=== PATIENT | male | born 1980 | race Caucasian/White ===

== ENCOUNTER 2017-08-07 12:15 | Inpatient (IN) | payer OTHER ==
[2017-08-07] MEDS ORDERED: MIDAZOLAM 2 MG/2 ML VIAL IVP ONE ×6 (12:20→13:40)
[2017-08-07] MEDS ORDERED: MIDAZOLAM 10 MG/2 ML VIAL ONE (12:24)
[2017-08-07] MEDS ORDERED: NS 1,000 ML IV ONE ×3 (12:30→14:14)
--- NOTE | 2017-08-07 12:31 | CPEKG ---
Heart Rate: 132 RR Interval: 455 P-R Interval: 124 QRSD Interval: 88 QT Interval: 316 QTC Interval: 468 P Jefferson: 83 QRS Jefferson: 63 T Wave Jefferson: 42 EKG Severity - ABNORMAL ECG - EKG Impression: SINUS TACHYCARDIA EKG Impression: VENTRICULAR PREMATURE COMPLEX EKG Impression: ABERRANT COMPLEX, POSSIBLY SUPRAVENTRICULAR EKG Impression: MISTY, CONSIDER BIATRIAL ABNORMALITIES Electronically Signed By: Piter Flores 07-Aug-2017 12:56:21
--- NOTE | 2017-08-07 12:40 | EDPHY ---
H & P HPI/ROS: CHIEF COMPLAINT: Hanging HISTORY OF PRESENT ILLNESS: The patient is a 36-year-old man who came in as a full trauma from the long-term for hanging. He was found hanging and pulseless. CPR was initiated. After 10 minutes of CPR pulses returned. AED in place but no shock advised. He was intubated by EMS. He had agonal breathing on the tube and was being bagged on arrival. No return of mental status. He was taken into the long-term last night for DUI. This morning he was evaluated and denied any significant medical history. REVIEW OF SYSTEMS: Unable to obtain secondary to condition Nursing assessment reviewed Vital signs reviewed Patient is unresponsive c-collar in place, backboard cleared by trauma protocol. HEAD: shows no evidence of trauma no raccoon eyes, no Oneil sign. NECK: trachea is midline, EYES: Pupils to a nonreactive, no movement, no subconjunctival hemorrhage ENT: Normal external inspection, airway in place, no sinus abnormalities CARDIOVASCULAR: heart sounds normal, not tachycardic or bradycardic, Chest is non-tender no rib tenderness no palpable fracture, no crepitus, no subcutaneous emphysema RESPIRATORY: Equal breath sounds bilaterally ABDOMEN: Abdomen is nontender in all 4 quadrants no guarding no rebound, no distention, no hernias, no masses or bruits. GENITAL/RECTAL: Normal external inspection, no blood at urethral meatus, Stable pelvis NEUROLOGIC/PSYCH: Unresponsive Jessica Coma score: 3 EYES none 1, SPEECH none 1, MOTORnone-1 SKIN: Intact, warm, dry, no ecchymosis, no lacerations, nondiaphoretic. BACK: No obvious injuries or step-offs EXTREMITIES: Atraumatic, pelvis stable, no pulse deficit, normal color and temperature Source: Police, EMS Exam Limitations: Clinical condition - Family History Significant Family History: Other (Unable to assess) Constitutional: Initial Vital Signs Temperature (C) 36.2 C 08/07/17 12:15 Heart Rate 123 H 08/07/17 12:15 Respiratory Rate 32 H 08/07/17 12:15 Blood Pressure 140/90 H 08/07/17 12:15 O2 Sat (%) 97 08/07/17 12:15 O2 Delivery Mode Ventilator O2 (L/minute) 15 Allergies/Adverse Reactions: No Known Allergies Allergy (Unverified 08/07/17 12:57) Home Medications: Medication Instructions Recorded NK [No Known Home Meds] 08/07/17 Medical Decision Making - Diagnostics EKG Interpretation: An EKG obtained and was read and documented in trace view. Please see trace view for full reading and report. Sinus tachycardia, Imaging: Discussed imaging studies w/ call or contact centre operator Radiologist ED Course/Re-evaluation: Chest x-ray was taken and the tube was high. This was advanced under direct guidance with glide scope. The balloon had been above the vocal cords. Was advanced to 26 and the balloon is now below the vocal cords with improvement on chest x-ray although still slightly high. Patient's heart rate is 130. His blood pressure is stable. He was taken to CT scan. Dr. Suazo is here on patient arrival. Patient had agonal respiration and slightly bucking the vent. He was given 8 mg Versed. Patient did well on CT scan. Still no spontaneous movement. We will start on cooling protocol. Dr. De Dios will place catheter and he will began the protocol in ICU. We have been trying to locate family's phone numbers. We have 2 different names and phone numbers for mom. They have not yet been notified. Differential Diagnosis: Partial list of the Differential diagnosis considered include but were not limited to; respiratory arrest, fracture, vascular injury and although unlikely based on the history and physical exam, I also considered head injury, infection, acute coronary disease. Critical Care Time: Critical care time spent by me, Dr. Flores exclusive with this patient was 45 minutes, exclusive of the PA time exclusive of procedures. The organ system that was at risk was cardiovascular, musculoskeletal and I gave assessment, consultation, admission to prevent worsening of the patient's condition - Data Points Laboratory Results: Laboratory Results 08/07/17 12:27 08/07/17 12:27 Medications Given: Chlorhexidine Gluconate (Peridex) 15 ml PO Q12@08,20 [place] Stop: 02/03/18 19:59 Last Admin: 08/08/17 08:47 Dose: 15 ml Famotidine/Sodium Chloride (Pepcid 20 Mg (Premix)) 50 mls @ 200 mls/hr IV Q12HRS [place] Stop: 02/03/18 20:59 Last Admin: 08/08/17 08:34 Dose: 50 mls Fentanyl/Sodium Chloride (Fentanyl 10 Mcg/Ml (Premix)) 100 mls @ 0 mls/hr IV CONT [place]; Per Protocol PRN Reason: Protocol Stop: 08/17/17 14:29 Last Admin: 08/08/17 05:44 Dose: 100 mls Propofol (Diprivan 10 Mg/Ml (Premix)) 100 mls @ 0 mls/hr IV CONT [place]; Per Protocol PRN Reason: Protocol Stop: 02/03/18 14:29 Last Admin: 08/08/17 08:46 Dose: 100 mls Sodium Chloride (Ns) 1,000 mls @ 75 mls/hr IV CONT [place] Stop: 02/03/18 14:13 Last Admin: 08/08/17 03:30 Dose: 1,000 mls Vecuronium [place] 50 mg/ (Dextrose) 50 mls @ 0 mls/hr IV CONT [place]; Per Protocol PRN Reason: Protocol Stop: 02/03/18 14:13 Last Admin: 08/08/17 06:46 Dose: 50 mls Nicardipine/Sodium Chloride (Cardene 0.1 Mg/Ml (Premix)) 200 mls @ 0 mls/hr IV CONT [place]; Per Protocol PRN Reason: Protocol Stop: 02/03/18 14:13 Last Admin: 08/07/17 16:11 Dose: 200 mls Potassium Chloride (Potassium Cl 10 Meq (Premix)) 50 mls @ 100 mls/hr IV Q30M [place] Stop: 08/08/17 09:59 Last Admin: 08/08/17 08:46 Dose: 50 mls Polyvinyl Alcohol/Povidone (Refresh P.M. Ointment) 1 loyd EACHEYE Q6HRS [place] Stop: 02/03/18 18:14 Last Admin: 08/08/17 07:17 Dose: 1 loyd Discontinued Medications Benzocaine (Hurricaine [place]) 1 each MM ONCALL ONE Stop: 08/07/17 14:38 Last Admin: 08/07/17 15:10 Dose: Not Given Fentanyl (Sublimaze) 50 mcg IVP ONCE ONE Stop: 08/07/17 14:15 Last Admin: 08/07/17 15:07 Dose: Not Given Sodium Chloride (Ns) 1,000 mls @ 0 mls/hr IV ONCE ONE PRN Reason: Wide Open Stop: 08/07/17 14:15 Last Admin: 08/07/17 15:10 Dose: Not Given Sodium Chloride (Ns) 1,000 mls @ 0 mls/hr IV ONCE ONE PRN Reason: Wide Open Stop: 08/07/17 13:16 Last Admin: 08/07/17 13:15 Dose: 1,000 mls Sodium Chloride (Ns) 1,000 mls @ 0 mls/hr IV ONCE ONE PRN Reason: Wide Open Stop: 08/07/17 12:31 Last Admin: 08/07/17 12:30 Dose: 1,000 mls Magnesium Sulfate/Dextrose (Magnesium Sulf 1 Gm (Premix)) 100 mls @ 100 mls/hr IV ONCE ONE Stop: 08/08/17 02:14 Last Admin: 08/08/17 01:45 Dose: 100 mls Lidocaine (Lidocaine 2% Jelly) 2 loyd TP ONCALL ONE Stop: 08/07/17 14:38 Last Admin: 08/07/17 15:10 Dose: 1 loyd Lidocaine HCl (Lidocaine Hcl 1%) 1 - 300 mg MISC ONCALL ONE Stop: 08/07/17 14:38 Last Admin: 08/07/17 15:10 Dose: 300 mg Midazolam HCl (Versed) 4 mg IVP EDNOW ONE Stop: 08/07/17 12:21 Last Admin: 08/07/17 12:20 Dose: 4 mg Midazolam HCl (Versed) 4 mg IVP EDNOW ONE Stop: 08/07/17 12:24 Last Admin: 08/07/17 12:23 Dose: 4 mg Midazolam HCl (Versed) 5 mg IVP EDNOW ONE Stop: 08/07/17 12:56 Last Admin: 08/07/17 12:55 Dose: 5 mg Midazolam HCl (Versed) 2.5 mg IVP EDNOW ONE Stop: 08/07/17 13:31 Last Admin: 08/07/17 13:30 Dose: 2.5 mg Midazolam HCl (Versed) 2.5 mg IVP EDNOW ONE Stop: 08/07/17 13:41 Last Admin: 08/07/17 13:40 Dose: 2.5 mg Midazolam HCl (Versed) 2 mg IVP EDNOW ONE Stop: 08/07/17 13:46 Last Admin: 08/07/17 15:35 Dose: Not Given Midazolam HCl (Versed) 0.5 mg IVP EDNOW ONE Stop: 08/07/17 13:41 Last Admin: 08/07/17 13:40 Dose: 0.5 mg Miscellaneous Information (Message To [facility]) 1 ea MISC ONCE ONE Stop: 08/07/17 14:15 Last Admin: 08/07/17 15:11 Dose: Not Given Departure - Departure Disposition: [facility] Acute Clinical Impression: Hypoxic brain injury, Cardiac arrest Hanging Qualifiers: Encounter type: initial encounter Qualified Code(s): T71.164A - Asphyxiation due to hanging, undetermined, initial encounter Condition: Critical
[2017-08-07 13:00] LABS: PLATELET COUNT 355 10^3/uL (150-400)
[2017-08-07 13:12] LABS: INR 1.06 (0.83-1.16); PROTIME(PATIENT) 13.7 SEC (12.0-15.0)
--- NOTE | 2017-08-07 13:13 | ASMTCMCOM ---
CM Note CM Note Notes: Patient brought to the ER per EMS s/p [facility]. Pulseless upon finding, rhythm returned after resuccitation efforts. No return of LOC. Unable to obtain history, NOK, etc. Per officer González with the [facility], gem are looking into finding NOK contact information. HACA to be initiated and patient admit to ICU. Date Signed: 08/07/2017 01:13 PM Electronically Signed By:Keke Villeda RN
--- NOTE | 2017-08-07 13:13 | ASMTCMCOM ---
CM Note CM Note Notes: Patient brought to the ER per EMS s/p found "hanging" at the correction. Pulseless upon finding, rhythm returned after resuccitation efforts. No return of LOC. Unable to obtain history, NOK, etc. Per officer González with the [facility], gem are looking into finding NOK contact information. HACA to be initiated and patient admit to ICU. Date Signed: 08/07/2017 01:13 PM Electronically Signed By:Keke Villeda RN
--- NOTE | 2017-08-07 13:13 | ASMTCMCOM ---
CM Note CM Note Notes: Patient brought to the ER per EMS s[facility]p [facility]. Pulseless upon finding, rhythm returned after resuccitation efforts. No return of LOC. Unable to obtain history, NOK, etc. Per officer González with the [facility] Office, gem are looking into finding NOK contact information. HACA to be initiated and patient admit to ICU. Date Signed: 08/07/2017 01:13 PM Electronically Signed By:Keke Villeda RN
[2017-08-07] MEDS ORDERED: MIDAZOLAM 2 MG/2 ML VIAL ONE ×3 (13:40→17:48)
[2017-08-07] MEDS: MIDAZOLAM 2 MG/2 ML VIAL IVP ONE ×2 (13:45→15:35)
[2017-08-07] MEDS ORDERED: PROPOFOL/EMULSION 1,000 MG/100 ML BOTTLE IV ONE (14:02)
[2017-08-07] MEDS ORDERED: fentanYL/NACL/100 ML BAG IV ONE (14:05)
[2017-08-07] MEDS: fentaNYL/NACL 100 ML IV SCH ×2 (14:09→20:15)
[2017-08-07] MEDS: PROPOFOL/EMULSION 100 ML IV SCH ×3 (14:09→22:43)
[2017-08-07] MEDS ORDERED: MIDAZOLAM 2 MG/2 ML VIAL IVP PRN (14:14)
[2017-08-07] MEDS ORDERED: fentaNYL 100 MCG/2 ML INJ IVP ONE (14:14)
[2017-08-07] MEDS ORDERED: NARCOTIC DRIP BAG-TOTAL ALL TYPES IV PRN (14:14)
[2017-08-07] MEDS ORDERED: PROTOCOL POTASSIUM 1 DOSE MISC PRN ×2 (14:14→14:18)
[2017-08-07] MEDS ORDERED: PROPOFOL/EMULSION 100 ML IV SCH (14:14)
[2017-08-07] MEDS ORDERED: niCARdipine/NACL 200 ML IV PRN (14:14)
[2017-08-07] MEDS ORDERED: NOREPINEPHRINE 4MG/NS 500 ML IV PRN (14:14)
[2017-08-07] MEDS ORDERED: NS 250 ML IV PRN (14:14)
[2017-08-07] MEDS ORDERED: fentaNYL/NACL 100 ML IV SCH (14:14)
[2017-08-07] MEDS ORDERED: MIDAZOLAM HCL 50 MG in D5W 50 ML IV PRN (14:14)
[2017-08-07] MEDS ORDERED: USE *INSINTENS FOR HYPOGLYCEMIA ORDERS MISC ONE (14:14)
[2017-08-07] MEDS ORDERED: PROTOCOL MAGNESIUM 1 DOSE IV PRN (14:18)
[2017-08-07] MEDS ORDERED: PROTOCOL CALCIUM 1 DOSE IV PRN (14:23)
[2017-08-07] MEDS ORDERED: PROTOCOL K PHOSPHATE 1 DOSE IV PRN (14:23)
--- NOTE | 2017-08-07 14:33 | GHP ---
[f rep st] HISTORY AND PHYSICAL Corrected report CHIEF COMPLAINT: Hanging from assisted. PRESENT ILLNESS: A 36-year-old adult male brought in by ambulance, intubated, apparently having received 10 minutes of CPR for pulseless electrical activity at the assisted and hanging. He was shocked once or twice, and eventually had a palpable pulse and a stable rhythm. When received in the emergency department, the patient is on a backboard, C-collar in place, intubated. PHYSICAL EXAM: HEENT: At that time, pupils 3 mm and not particularly reactive. No blood in the ear canals. CHEST: Breath sounds were equal bilaterally. HEART: Normal S1, S2. EXTREMITIES: Upper extremities show no sign of trauma. NECK: There were some erythematous stripes around the neck, consistent with a broad-based hanging attempt. No cuts in the skin around the neck. ABDOMEN: Soft, benign. RESPIRATORY: The patient had an unusual paradoxical breathing with pronounced retraction of the upper abdomen or xiphoid area with inspiration. MUSCULOSKELETAL: Pelvis is stable to compression. Lower extremities atraumatic. Eventually, the patient was rolled on his side and no obvious abnormalities of the back were seen. NEUROLOGICAL: The patient had corneal reflexes, breathing spontaneously. Babinski could not be elicited, either way. No response to verbal commands. No spontaneous eye opening. [place] coma scale was 3. LABORATORY: Not reviewed until after CT scans, include hemoglobin of 18 with a hematocrit of 51, white blood count 16,000. Coags are normal. Chemistries normal other than potassium of 5.0. IMAGING: Chest x-ray initially did not show the position of the ET tube and inspection showed the cuff to be inflated just above the cords. This was repositioned below the cords and a followup film taken. CT scan of the head was normal. CT scan of the neck showed no fractures, no carotid or vertebral injuries. EMERGENCY ROOM COURSE: I placed a cooling catheter in the right groin with the usual sterile technique, positioned the tip of the catheter right at the diaphragm, confirmed with fluoroscopy. The patient received numerous doses of Versed because he began having spontaneous arm and leg movements, not purposeful. After the cooling catheter was placed, he was transported to the intensive care unit for further management. /[id number]/MODL Wayne worktype, 08/07/17, sugey RED
--- NOTE | 2017-08-07 14:33 | GHP ---
[f rep st] HISTORY AND PHYSICAL Corrected report CHIEF COMPLAINT: [facility]. PRESENT ILLNESS: A 36-year-old adult male brought in by ambulance, intubated, apparently having received 10 minutes of CPR for pulseless electrical activity at the prison and hanging. He was shocked once or twice, and eventually had a palpable pulse and a stable rhythm. When received in the emergency department, the patient is on a backboard, C-collar in place, intubated. PHYSICAL EXAM: HEENT: At that time, pupils 3 mm and not particularly reactive. No blood in the ear canals. CHEST: Breath sounds were equal bilaterally. HEART: Normal S1, S2. EXTREMITIES: Upper extremities show no sign of trauma. NECK: There were some erythematous stripes around the neck, consistent with a broad-based hanging attempt. No cuts in the skin around the neck. ABDOMEN: Soft, benign. RESPIRATORY: The patient had an unusual paradoxical breathing with pronounced retraction of the upper abdomen or xiphoid area with inspiration. MUSCULOSKELETAL: Pelvis is stable to compression. Lower extremities atraumatic. Eventually, the patient was rolled on his side and no obvious abnormalities of the back were seen. NEUROLOGICAL: The patient had corneal reflexes, breathing spontaneously. Babinski could not be elicited, either way. No response to verbal commands. No spontaneous eye opening. [place] coma scale was 3. LABORATORY: Not reviewed until after CT scans, include hemoglobin of 18 with a hematocrit of 51, white blood count 16,000. Coags are normal. Chemistries normal other than potassium of 5.0. IMAGING: Chest x-ray initially did not show the position of the ET tube and inspection showed the cuff to be inflated just above the cords. This was repositioned below the cords and a followup film taken. CT scan of the head was normal. CT scan of the neck showed no fractures, no carotid or vertebral injuries. EMERGENCY ROOM COURSE: I placed a cooling catheter in the right groin with the usual sterile technique, positioned the tip of the catheter right at the diaphragm, confirmed with fluoroscopy. The patient received numerous doses of Versed because he began having spontaneous arm and leg movements, not purposeful. After the cooling catheter was placed, he was transported to the intensive care unit for further management. /[id number]/MODL Wayne worktype, 08/07/17, sugey RED
--- NOTE | 2017-08-07 14:33 | GHP ---
[f rep st] HISTORY AND PHYSICAL Corrected report CHIEF COMPLAINT: Hanging from retirement. PRESENT ILLNESS: A 36-year-old adult male brought in by ambulance, intubated, apparently having received 10 minutes of CPR for pulseless electrical activity at the retirement and hanging. He was shocked once or twice, and eventually had a palpable pulse and a stable rhythm. When received in the emergency department, the patient is on a backboard, C-collar in place, intubated. PHYSICAL EXAM: HEENT: At that time, pupils 3 mm and not particularly reactive. No blood in the ear canals. CHEST: Breath sounds were equal bilaterally. HEART: Normal S1, S2. EXTREMITIES: Upper extremities show no sign of trauma. NECK: There were some erythematous stripes around the neck, consistent with a broad-based hanging attempt. No cuts in the skin around the neck. ABDOMEN: Soft, benign. RESPIRATORY: The patient had an unusual paradoxical breathing with pronounced retraction of the upper abdomen or xiphoid area with inspiration. MUSCULOSKELETAL: Pelvis is stable to compression. Lower extremities atraumatic. Eventually, the patient was rolled on his side and no obvious abnormalities of the back were seen. NEUROLOGICAL: The patient had corneal reflexes, breathing spontaneously. Babinski could not be elicited, either way. No response to verbal commands. No spontaneous eye opening. [place] coma scale was 3. LABORATORY: Not reviewed until after CT scans, include hemoglobin of 18 with a hematocrit of 51, white blood count 16,000. Coags are normal. Chemistries normal other than potassium of 5.0. IMAGING: Chest x-ray initially did not show the position of the ET tube and inspection showed the cuff to be inflated just above the cords. This was repositioned below the cords and a followup film taken. CT scan of the head was normal. CT scan of the neck showed no fractures, no carotid or vertebral injuries. EMERGENCY ROOM COURSE: I placed a cooling catheter in the right groin with the usual sterile technique, positioned the tip of the catheter right at the diaphragm, confirmed with fluoroscopy. The patient received numerous doses of Versed because he began having spontaneous arm and leg movements, not purposeful. After the cooling catheter was placed, he was transported to the intensive care unit for further management. /[id number]/MODL Wayne worktype, 08/07/17, sugey RED
[2017-08-07] MEDS ORDERED: LIDOCAINE 2% JELLY 5 ML TUBE TP ONE (14:37)
[2017-08-07] MEDS ORDERED: LIDOCAINE 1% 300 MG/30 ML SDV MISC ONE (14:37)
[2017-08-07] MEDS ORDERED: BENZOCAINE UNIT DOSE SPRAY HURRICAINE MM ONE (14:37)
[2017-08-07] MEDS ORDERED: LIDOCAINE 1% 300 MG/30 ML SDV ONE (14:39)
[2017-08-07] MEDS ORDERED: LIDOCAINE 2% JELLY 5 ML TUBE ONE (14:39)
--- NOTE | 2017-08-07 15:27 | ASMTCMCOM ---
CM Note CM Note Notes: Contact number per [place] [employer] given to [employer] Supervisor, number ended up being that of a friend. He is to contact family and have them call and speak to physician, Brother in law called and spoke to physician. He will speak to patient's sister and mother both of whom are out of state. They are to call back to speak with physician. CM to follow. Date Signed: 08/07/2017 03:27 PM Electronically Signed By:Richelle Morales RN
--- NOTE | 2017-08-07 15:27 | ASMTCMCOM ---
CM Note CM Note Notes: Contact number per [place] Police given to [employer]ra[employer] Polisher, number ended up being that of a friend. He is to contact family and have them call and speak to physician, Brother in law called and spoke to physician. He will speak to patient's sister and mother both of whom are out of state. They are to call back to speak with physician. CM to follow. Date Signed: 08/07/2017 03:27 PM Electronically Signed By:Richelle Morales RN
--- NOTE | 2017-08-07 15:43 | GCON ---
[f rep st] CONSULTATION DATE OF CONSULTATION: 08/07/2017 REASON FOR ADMISSION: Hanging and alcoholism. HISTORY OF PRESENT ILLNESS: The patient is a 36-year-old, white male with a past medical history of alcoholism with frequent DUIs. [facility] was [facility] where he was found to be hanging by the [facility]. CPR was started, and he was subsequently resuscitated. He was intubated in the field and brought to the emergency room, and then subsequently admitted to the intensive care unit. Currently, he is in a coma under HACA protocol and on mechanical ventilation. All history is gleaned from the medical record. He has been seen by Trauma. PAST MEDICAL HISTORY: Significant only for alcoholism. PAST SURGICAL HISTORY: Unknown. ALLERGIES: No known allergies to medications. SOCIAL HISTORY: Unknown with the exception of alcoholism. HOME MEDICATION: None. PHYSICAL EXAMINATION: VITAL SIGNS: Blood pressure 125/75, pulse 96, respirations 23, temperature is 35.8, oxygen saturation 95% on mechanical ventilation at 70%. GENERAL: He is a well-developed, wel l-nourished 36-year-old white male who is obtunded and on mechanical ventilation. HEENT: Pupils are smallish but reactive to light. Throat: Endotracheal tube is in good position. NECK: In a hard C -collar. HEART: Regular rate and rhythm without murmurs, rubs, or gallops. LUNGS: Few scattered r honchi but no wheeze. ABDOMEN: Soft, nontender. Bowel sounds are present in all 4 quadrants. EXTR EMITIES: No clubbing, cyanosis, or edema. LABORATORIES: White count 16, hemoglobin 18, hematocrit 51, platelet count is 355. [facility]. [facility]. Sodium is 144, potassium 4.0, chloride 105, CO2 is 14, BUN is 15, creat inine 1.2, glucose is 128. Urine tox screen is negative. Alcohol level is 108. Chest x-ray shows endotracheal tube in good position. There are posterior left 7th and 8th rib fract ures. IMPRESSION: 1. Status post hanging. 2. Possible anoxic brain injury. 3. Rib fractures. 4. Status post .. 5. Alcoholism. 6. Acute respiratory failure. RECOMMENDATIONS: 1. Agree with HACA per protocol. 2. Continue mechanical ventilation. 3. DVT and PE prophylaxis. 4. Stress ulcer prophylaxis. 5. Will perform fiberoptic bronchoscopy. /[id number]/MODL
--- NOTE | 2017-08-07 15:43 | GCON ---
[f rep st] CONSULTATION DATE OF CONSULTATION: 08/07/2017 REASON FOR ADMISSION: Hanging and alcoholism. HISTORY OF PRESENT ILLNESS: The patient is a 36-year-old, white male with a past medical history of alcoholism with frequent DUIs. He was admitted from [facility] where he was found to be hanging by the [facility]. CPR was started, and he was subsequently resuscitated. He was intubated in the field and brought to the emergency room, and then subsequently admitted to the intensive care unit. Currently, he is in a coma under HACA protocol and on mechanical ventilation. All history is gleaned from the medical record. He has been seen by Trauma. PAST MEDICAL HISTORY: Significant only for alcoholism. PAST SURGICAL HISTORY: Unknown. ALLERGIES: No known allergies to medications. SOCIAL HISTORY: Unknown with the exception of alcoholism. HOME MEDICATION: None. PHYSICAL EXAMINATION: VITAL SIGNS: Blood pressure 125/75, pulse 96, respirations 23, temperature is 35.8, oxygen saturation 95% on mechanical ventilation at 70%. GENERAL: He is a well-developed, wel l-nourished 36-year-old white male who is obtunded and on mechanical ventilation. HEENT: Pupils are smallish but reactive to light. Throat: Endotracheal tube is in good position. NECK: In a hard C -collar. HEART: Regular rate and rhythm without murmurs, rubs, or gallops. LUNGS: Few scattered r honchi but no wheeze. ABDOMEN: Soft, nontender. Bowel sounds are present in all 4 quadrants. EXTR EMITIES: No clubbing, cyanosis, or edema. LABORATORIES: White count 16, hemoglobin 18, hematocrit 51, platelet count is 355. INR is 1.06. [facility]. Sodium is 144, potassium 4.0, chloride 105, CO2 is 14, BUN is 15, creat inine 1.2, glucose is 128. Urine tox screen is negative. Alcohol level is 108. Chest x-ray shows endotracheal tube in good position. There are posterior left 7th and 8th rib fract ures. IMPRESSION: 1. Status post hanging. 2. Possible anoxic brain injury. 3. Rib fractures. 4. Status post .. 5. Alcoholism. 6. Acute respiratory failure. RECOMMENDATIONS: 1. Agree with HACA per protocol. 2. Continue mechanical ventilation. 3. DVT and PE prophylaxis. 4. Stress ulcer prophylaxis. 5. Will perform fiberoptic bronchoscopy. /[id number]/MODL
--- NOTE | 2017-08-07 15:43 | GCON ---
[f rep st] CONSULTATION DATE OF CONSULTATION: 08/07/2017 REASON FOR ADMISSION: Hanging and alcoholism. HISTORY OF PRESENT ILLNESS: The patient is a 36-year-old, white male with a past medical history of alcoholism with frequent DUIs. He was admitted from intermediate where he was found to be hanging by the [facility]. CPR was started, and he was subsequently resuscitated. He was intubated in the field and brought to the emergency room, and then subsequently admitted to the intensive care unit. Currently, he is in a coma under HACA protocol and on mechanical ventilation. All history is gleaned from the medical record. He has been seen by Trauma. PAST MEDICAL HISTORY: Significant only for alcoholism. PAST SURGICAL HISTORY: Unknown. ALLERGIES: No known allergies to medications. SOCIAL HISTORY: Unknown with the exception of alcoholism. HOME MEDICATION: None. PHYSICAL EXAMINATION: VITAL SIGNS: Blood pressure 125/75, pulse 96, respirations 23, temperature is 35.8, oxygen saturation 95% on mechanical ventilation at 70%. GENERAL: He is a well-developed, wel l-nourished 36-year-old white male who is obtunded and on mechanical ventilation. HEENT: Pupils are smallish but reactive to light. Throat: Endotracheal tube is in good position. NECK: In a hard C -collar. HEART: Regular rate and rhythm without murmurs, rubs, or gallops. LUNGS: Few scattered r honchi but no wheeze. ABDOMEN: Soft, nontender. Bowel sounds are present in all 4 quadrants. EXTR EMITIES: No clubbing, cyanosis, or edema. LABORATORIES: White count 16, hemoglobin 18, hematocrit 51, platelet count is 355. INR is 1.06. [facility] is pending. Sodium is 144, potassium 4.0, chloride 105, CO2 is 14, BUN is 15, creat inine 1.2, glucose is 128. Urine tox screen is negative. Alcohol level is 108. Chest x-ray shows endotracheal tube in good position. There are posterior left 7th and 8th rib fract ures. IMPRESSION: 1. Status post hanging. 2. Possible anoxic brain injury. 3. Rib fractures. 4. Status post .. 5. Alcoholism. 6. Acute respiratory failure. RECOMMENDATIONS: 1. Agree with HACA per protocol. 2. Continue mechanical ventilation. 3. DVT and PE prophylaxis. 4. Stress ulcer prophylaxis. 5. Will perform fiberoptic bronchoscopy. /[id number]/MODL
--- NOTE | 2017-08-07 15:56 | ASMTCMCOM ---
CM Note CM Note Notes: Mother called and spoke to Dr. Knowles . Her name is Eve Martin [phone]. She has not decided if she is coming to [place]. Mother's contact number updated to facesheet and on whiteboard in room. Contact number per [place] Police given to System Operation Superintendent, number ended up being that of a friend. He is to contact family and have them call and speak to physician, Brother in law called and spoke to physician. He will speak to patient's sister and mother both of whom are out of state. They are to call back to speak with physician. CM to follow. Date Signed: 08/07/2017 03:56 PM Electronically Signed By:Richelle Morales RN
--- NOTE | 2017-08-07 15:56 | ASMTCMCOM ---
CM Note CM Note Notes: Mother called and spoke to Dr. Knowles . Her name is Eve Martin [phone]. She has not decided if she is coming to [place]. Mother's contact number updated to facesheet and on whiteboard in room. Contact number per [place] Police given to Non Destructive Testing Specialist, number ended up being that of a friend. He is to contact family and have them call and speak to physician, Brother in law called and spoke to physician. He will speak to patient's sister and mother both of whom are out of state. They are to call back to speak with physician. CM to follow. Date Signed: 08/07/2017 03:56 PM Electronically Signed By:Richelle Morales RN
--- NOTE | 2017-08-07 15:56 | ASMTCMCOM ---
CM Note CM Note Notes: Mother called and spoke to Dr. Knowles . Her name is Eve Martin [phone]. She has not decided if she is coming to [place]. Mother's contact number updated to facesheet and on whiteboard in room. Contact number per [place] Police given to Wholesale Manager, number ended up being that of a friend. He is to contact family and have them call and speak to physician, Brother in law called and spoke to physician. He will speak to patient's sister and mother both of whom are out of state. They are to call back to speak with physician. CM to follow. Date Signed: 08/07/2017 03:56 PM Electronically Signed By:Richelle Morales RN
[2017-08-07] MEDS: VECURONIUM BROMIDE 50 MG in D5W 50 ML IV SCH ×2 (16:04→20:29)
[2017-08-07] MEDS: NS 1,000 ML IV SCH (16:04)
[2017-08-07] MEDS: niCARdipine/NACL 200 ML IV SCH (16:11)
--- NOTE | 2017-08-07 16:53 | GPN ---
[f rep st] PROCEDURE NOTE PROCEDURE: fiberoptic bronchoscopy. INDICATION: Possible aspiration. ANESTHESIA: Currently sedated and on mechanical ventilation. Procedure was performed in the intensive care unit with continuous pulse ox, EKG, and blood pressure monitoring. Please note, the patient is on mechanical ventilation which is, by definition, a closed system and poses no risk for airborne pathogens. DESCRIPTION OF PROCEDURE: The bronchoscope was entered through a #7.5 endotracheal tube. Distal tra silvestre and claire were visualized and showed no endobronchial lesion and normal-appearing mucosa. Bron choscopy of the left lung: Left upper lobe, lingula, left lower lobe, including subsegments, were romero bsequently visualized and showed no endobronchial lesions and normal-appearing mucosa. Bronchoscopy of the right lung: There was significant mucous plugging with possible food particles in the right u pper lobe. This was therapeutically aspirated. The right upper lobe, once cleared of secretions, ap peared normal, and there was no purulent material seen. Bronchoscopy in the right middle lobe and ri ght lower lobe, and subsegments were subsequently visualized showing no endobronchial lesions and nor mal-appearing mucosa. Bronchoscope was then removed. Please note, the endotracheal tube is approxim ately 3 cm above the claire. The patient tolerated the procedure well. There were no apparent compl ications. /[id number]/MODL
[2017-08-07 18:24] LABS: INR 1.07 (0.83-1.16); PROTIME(PATIENT) 13.8 SEC (12.0-15.0)
[2017-08-07] MEDS: PETROLAT,WHT/MIN OIL/SOD CHL 3.5 GM OPHT.OINT EACHEYE SCH (18:24)
[2017-08-07] MEDS: CHLORHEXIDINE GLUCONATE 15 ML UDL PO SCH (20:15)
[2017-08-07] MEDS: FAMOTIDINE 20 MG/NACL 50 ML IV SCH (20:29)
[2017-08-08] MEDS ORDERED: MAGNESIUM SULF 1 GM/DEXTROSE 100 ML IV ONE (01:15)
[2017-08-08] MEDS: PETROLAT,WHT/MIN OIL/SOD CHL 3.5 GM OPHT.OINT EACHEYE SCH ×5 (01:45→23:33)
[2017-08-08] MEDS: NS 1,000 ML IV SCH ×2 (03:30→21:07)
[2017-08-08] MEDS: PROPOFOL/EMULSION 100 ML IV SCH ×5 (03:30→23:33)
[2017-08-08] MEDS: fentaNYL/NACL 100 ML IV SCH ×2 (05:44→14:51)
[2017-08-08 06:33] LABS: INR 1.07 (0.83-1.16); PROTIME(PATIENT) 13.8 SEC (12.0-15.0)
[2017-08-08] MEDS: VECURONIUM BROMIDE 50 MG in D5W 50 ML IV SCH ×2 (06:46→16:36)
[2017-08-08] MEDS: FAMOTIDINE 20 MG/NACL 50 ML IV SCH (08:34)
[2017-08-08] MEDS: POTASSIUM Cl (KCl) 50 ML IV SCH ×3 (08:46→10:24)
[2017-08-08] MEDS: CHLORHEXIDINE GLUCONATE 15 ML UDL PO SCH ×2 (08:47→21:06)
[2017-08-08] MEDS: niCARdipine/NACL 200 ML IV SCH ×2 (08:57→23:34)
[2017-08-08] MEDS ORDERED: RN MUST ADD CA+ & PHOS PROTOCOL TO WORKLIST AT 36 C MISC SCH (09:00)
--- NOTE | 2017-08-08 09:00 | PDINTPN ---
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 Warming to start later on this afternoon * Acute respiratory failure-stable on mechanical ventilation -will not assess for extubation today * Rib fractures * Alcoholism-watch for withdrawal symptoms once the patient is warmed up * VT prophylaxis * Stress ulcer prophylaxis * Sedation-adequate. Currently on paralytic 35 minutes of critical care time spent with patient. Case discussed with Nursing and Respiratory therapy Subjective: Sedated, paralyzed and on mechanical ventilation Objective: Vital Signs Temp Pulse Resp BP Pulse Ox 33.0 C L 82 18 124/68 H 99 08/08/17 07:56 08/08/17 07:56 08/08/17 07:56 08/08/17 07:56 08/08/17 07:56 Laboratory Results 08/08/17 06:00 08/08/17 06:00 08/07/17 08/08/17 08/09/17 05:59 05:59 05:59 Intake Total 1887 Output Total 1925 Balance -38 PT 13.8 SEC (12.0-15.0) 08/08/17 06:00 INR 1.07 (0.83-1.16) 08/08/17 06:00 Chest [id number] by myself. Endotracheal tube in good position. No change in rib fractures. No infiltrates are appreciated - Time Spent With Patient Time Spent With Patient: 35 minutes of critical care time spent with patient Physical Exam - Physical Exam General Appearance: other (Sedated paralyzed), No alert EENT: PERRL/EOMI, ET tube Neck: other (C collar) Respiratory: crackles (Few scattered), No respiratory distress Cardiac/Chest: normal peripheral pulses, regular rate, rhythm Peripheral Pulses: 2+: carotid (R), carotid (L), femoral (R), femoral (L), dorsalis-pedis (R), dorsalis-pedis (L) Abdomen: normal bowel sounds, non-tender, soft Male Genitalia: deferred Rectal: deferred Skin: normal color, warm/dry Neuro/Psych: No alert ICD10 Worksheet Patient Problems: Problems Problem Status Onset Cardiac arrest Acute Hanging Acute Hypoxic brain injury Acute
[2017-08-08] MEDS: RN MUST REMOVE K+ & MG+ PROTOCOL FROM WORKLIST AT 36 C MISC SCH (09:09)
[2017-08-08] MEDS: MAINTAIN PARALYTIC,ANALGESIA,SEDATION UNTIL TEMP IS 36C MISC SCH (09:10)
[2017-08-08] MEDS ORDERED: POTASSIUM Cl (KCl) 50 ML IV ONE (13:31)
[2017-08-08] MEDS ORDERED: PROTOCOL K PHOSPHATE 1 DOSE IV PRN (14:21)
[2017-08-08] MEDS ORDERED: PROTOCOL CALCIUM 1 DOSE IV PRN (14:21)
--- NOTE | 2017-08-08 14:38 | TRAUMAPN ---
Assessment/Plan: PAD#1 08/08/2017 Assessment: Patient has almost completed his cooling cycle. He is still paralyzed with Vecuronium. NG shows dark brown drainage Still in C-collar although studies negative CXR tube in good position Lactic acid down to 1.2 Transaminase elevation noted Donor alliance aware Plan: Rewarming to start soon. Will add Protonix and Carafate. Subjective: intubated Objective: Vital Signs Temp Pulse Resp BP Pulse Ox 33.1 C L 71 18 127/74 H 96 08/08/17 14:00 08/08/17 14:00 08/08/17 14:00 08/08/17 14:00 08/08/17 14:00 Laboratory Results 08/08/17 06:00 08/08/17 12:00 08/07/17 08/08/17 08/09/17 05:59 05:59 05:59 Intake Total 1887 Output Total 1925 740 Balance -38 -740 PT 13.8 SEC (12.0-15.0) 08/08/17 06:00 INR 1.07 (0.83-1.16) 08/08/17 06:00 - C-Spine Clearance Cervical Spine Cleared: No Physical Exam - Physical Exam General Appearance: WD/WN, other (intubated and paralyzed) Neck: other (in C-collar) Respiratory: lungs clear, normal breath sounds Cardiac/Chest: regular rate, rhythm Abdomen: non-tender, soft Male Genitalia: deferred Rectal: deferred Back: Normal inspection Skin: normal color Time Spent w/Patient (minutes): 35
[2017-08-08] MEDS: PANTOPRAZOLE SODIUM 40 MG VIAL IVP SCH ×2 (14:57→21:06)
--- NOTE | 2017-08-08 15:33 | ASMTCMCOM ---
CM Note CM Note Notes: Pt continues on HACA. Warming protocol to start soon. Per Dr Knowles, pt's parents will not be coming. Per trauma surgeon's note, donor alliance has been notified. C/M available as needed. Date Signed: 08/08/2017 03:32 PM Electronically Signed By:Felisha West LCSW
[2017-08-08] MEDS: SUCRALFATE 1 GM/10 ML UDCUP PO SCH ×2 (16:05→21:06)
[2017-08-08 18:14] LABS: INR 1.07 (0.83-1.16); PROTIME(PATIENT) 13.8 SEC (12.0-15.0)
[2017-08-08] MEDS ORDERED: FUROSEMIDE 40 MG/4 ML VIAL IVP ONE (20:15)
[2017-08-08] MEDS: ALBUTEROL 200 PUFFS/18 GM MDI IH SCH (21:46)
[2017-08-09] MEDS: fentaNYL/NACL 100 ML IV SCH ×2 (00:51→09:32)
[2017-08-09] MEDS: ALBUTEROL 200 PUFFS/18 GM MDI IH SCH ×4 (01:26→12:56)
[2017-08-09] MEDS: VECURONIUM BROMIDE 50 MG in D5W 50 ML IV SCH (01:34)
[2017-08-09] MEDS: SUCRALFATE 1 GM/10 ML UDCUP PO SCH ×4 (03:50→23:03)
[2017-08-09 04:41] LABS: PLATELET COUNT 263 10^3/uL (150-400)
[2017-08-09] MEDS: PETROLAT,WHT/MIN OIL/SOD CHL 3.5 GM OPHT.OINT EACHEYE SCH ×3 (06:34→23:03)
[2017-08-09] MEDS: NS 1,000 ML IV SCH (08:35)
[2017-08-09] MEDS: CHLORHEXIDINE GLUCONATE 15 ML UDL PO SCH ×2 (08:55→23:03)
--- NOTE | 2017-08-09 08:56 | PDINTPN ---
Waiter/Waitress Economy Class Progress Note Assessment/Plan: Assessment/plan: * Status post hanging * Possible anoxic brain injury-currently on HACA protocol. Not quite warm yet * Acute respiratory failure-worsening oxygen requirements. Increased secretions. Somewhat better after Lasix -will repeat bronchoscopy today -add more Lasix * Probable aspiration-will add antibiotics today * Rib fractures * Alcoholism-watch for withdrawal symptoms once the patient is warmed up * VT prophylaxis * Stress ulcer prophylaxis * Sedation-adequate. Remains on paralytic until warm 40 minutes of critical care time spent with patient. Case discussed with Nursing and Respiratory therapy Subjective: Sedated, paralyzed and on mechanical ventilation Objective: Vital Signs Temp Pulse Resp BP Pulse Ox 35.9 C L 103 H 18 123/64 H 100 08/09/17 08:00 08/09/17 08:00 08/09/17 08:00 08/09/17 08:00 08/09/17 08:00 Laboratory Results 08/09/17 04:30 08/09/17 04:21 08/08/17 08/09/17 08/10/17 05:59 05:59 05:59 Intake Total 1887 3074.9 Output Total 1925 2975 Balance -38 99.9 PT 13.8 SEC (12.0-15.0) 08/08/17 17:45 INR 1.07 (0.83-1.16) 08/08/17 17:45 Laboratory Results 08/09/17 04:30 08/09/17 04:21 08/09/17 08/09/17 08/09/17 04:40 04:21 04:21 Patient Temperature 35.6 DEGREES DEGREES pCO2 39 mmHg H mmHg (34 - 38) pO2 98 mmHg H mmHg (65 - 75) Total CO2 24 mEq/L mEq/L (23 - 27) ABG pH 7.38 (7.35 - 7.45) ABG PO2/FiO2 Ratio 98 RATIO RATIO ABG HCO3 23 mEq/L mEq/L (22 - 26) ABG O2 Saturation 97 % H % (92 - 95) ABG Base Excess -1.9 mEq/L mEq/L (-2.5 - 2.5) O2 Concentration % 100 % % Actual Respiration Rate 18 Set Respiration Rate 18 SIMV YES Tidal Volume 600 PEEP 7 Peak Inspir Pressure 26.2 Pressure Support 7 Calcium 8.5 mg/dL mg/dL (8.5 - 10.4) Ionized Calcium 1.04 MMOL/L L MMOL/L (1.12 - 1.30) Chest [id number] by myself. Endotracheal tube is somewhat high. There is increased pulmonary edema. There is a right lower lobe infiltrate - Time Spent With Patient Time Spent With Patient: 40 minutes of critical care time spent with patient Physical Exam - Physical Exam General Appearance: WD/WN, No alert EENT: PERRL/EOMI, ET tube Respiratory: crackles (Bibasilar right greater the left), No respiratory distress Cardiac/Chest: normal peripheral pulses, regular rate, rhythm Peripheral Pulses: 2+: carotid (R), carotid (L), femoral (R), femoral (L), dorsalis-pedis (R), dorsalis-pedis (L) Abdomen: normal bowel sounds, non-tender, soft Male Genitalia: deferred Rectal: deferred Skin: normal color, warm/dry Extremities: normal range of motion, non-tender, normal inspection, normal capillary refill Neuro/Psych: No alert ICD10 Worksheet Patient Problems: Problems Problem Status Onset Cardiac arrest Acute Hanging Acute Hypoxic brain injury Acute
[2017-08-09] MEDS ORDERED: FUROSEMIDE 40 MG/4 ML VIAL IVP ONE (08:57)
[2017-08-09] MEDS: PANTOPRAZOLE SODIUM 40 MG VIAL IVP SCH ×2 (09:00→23:16)
[2017-08-09] MEDS: PROPOFOL/EMULSION 100 ML IV SCH (09:00)
[2017-08-09] MEDS: ERTAPENEM 1 GM in NS 100 ML IV SCH (09:30)
--- NOTE | 2017-08-09 10:02 | TRAUMAPN ---
Assessment/Plan: PAD#1 08/08/2017 Assessment: Patient has almost completed his cooling cycle. He is still paralyzed with Vecuronium. NG shows dark brown drainage Still in C-collar although studies negative CXR tube in good position Lactic acid down to 1.2 Transaminase elevation noted Donor alliance aware Plan: Rewarming to start soon. Will add Protonix and Carafate. PAD#2 08/09/2017 Re-warming not yet complete. He is still paralyzed with Vecuronium. NG clearing Still in C-collar FX left 7&8 robs - no PTX required increased respiratory support last PM - Bronch pending today Plan: Continue rewarming and reassessment Re-check LFTs Subjective: intubated/paralyzed Objective: Vital Signs Temp Pulse Resp BP Pulse Ox 36.1 C 112 H 18 134/70 H 97 08/09/17 09:00 08/09/17 09:00 08/09/17 09:00 08/09/17 09:00 08/09/17 09:00 Laboratory Results 08/09/17 04:30 08/09/17 04:21 08/08/17 08/09/17 08/10/17 05:59 05:59 05:59 Intake Total 1887 3074.9 Output Total 1925 2975 550 Balance -38 99.9 -550 PT 13.8 SEC (12.0-15.0) 08/08/17 17:45 INR 1.07 (0.83-1.16) 08/08/17 17:45 - C-Spine Clearance Cervical Spine Cleared: No Physical Exam - Physical Exam General Appearance: WD/WN, other (Intubated) Neck: other (in C-collar) Respiratory: lungs clear, other (excursion limited) Cardiac/Chest: regular rate, rhythm Abdomen: non-tender, soft Male Genitalia: deferred Rectal: deferred Time Spent w/Patient (minutes): 15
[2017-08-09] MEDS: MAINTAIN PARALYTIC,ANALGESIA,SEDATION UNTIL TEMP IS 36C MISC SCH (10:32)
[2017-08-09] MEDS: RN MUST REMOVE K+ & MG+ PROTOCOL FROM WORKLIST AT 36 C MISC SCH (10:32)
--- NOTE | 2017-08-09 11:06 | CPEKG ---
Heart Rate: 119 RR Interval: 504 P-R Interval: 124 QRSD Interval: 92 QT Interval: 340 QTC Interval: 479 P [place]: 89 QRS [place]: 81 T Wave [place]: -57 EKG Severity - ABNORMAL ECG - EKG Impression: SINUS TACHYCARDIA EKG Impression: RIGHT ATRIAL ABNORMALITY EKG Impression: BORDERLINE PROLONGED QT INTERVAL Electronically Signed By: Rich Das 10-Aug-2017 08:38:22
[2017-08-09] MEDS ORDERED: HALOPERIDOL LACT 5 MG/ML INJ IVP PRN (12:41)
[2017-08-09] MEDS ORDERED: DEXMEDETOMIDINE HCL 400 MCG in NS 100 ML IV SCH (13:00)
[2017-08-09] MEDS: THIAMINE HCL 500 MG in NS 100 ML IV SCH (13:14)
[2017-08-09] MEDS: LORazepam 2 MG/ML INJ IVP PRN ×2 (13:26→18:21)
[2017-08-09] MEDS ORDERED: MAGNESIUM SULF 1 GM/DEXTROSE 100 ML IV ONE (15:05)
[2017-08-09] MEDS ORDERED: CALCIUM GLUCONATE 50 ML IV ONE (15:05)
[2017-08-09] MEDS: ENOXAPARIN 40 MG/0.4 ML SYR SC SCH (15:33)
[2017-08-09] MEDS ORDERED: ACETAMINOPHEN 650 MG SUPP PR PRN (16:03)
[2017-08-09] MEDS ORDERED: ALBUTEROL 3 ML DEYVIAL IH PRN (16:55)
[2017-08-09] MEDS ORDERED: ALBUTEROL 3 ML DEYVIAL NEB PRN (17:00)
[2017-08-09 19:00] LABS: INR 1.16 (0.83-1.16); PROTIME(PATIENT) 14.8 SEC (12.0-15.0)
[2017-08-09] MEDS ORDERED: ACETAMINOPHEN 650 MG/20.3 ML UDCUP ONE (23:08)
[2017-08-10] MEDS: LORazepam 2 MG/ML INJ IVP PRN ×3 (00:10→20:31)
[2017-08-10] MEDS: PETROLAT,WHT/MIN OIL/SOD CHL 3.5 GM OPHT.OINT EACHEYE SCH ×4 (01:25→18:03)
[2017-08-10] MEDS ORDERED: ACETAMINOPHEN 650 MG/20.3 ML UDCUP PO PRN (03:00)
[2017-08-10] MEDS: SUCRALFATE 1 GM/10 ML UDCUP PO SCH ×3 (04:06→14:48)
--- NOTE | 2017-08-10 07:46 | TRAUMAPN ---
Assessment/Plan: PAD#1 08/08/2017 Assessment: Patient has almost completed his cooling cycle. He is still paralyzed with Vecuronium. NG shows dark brown drainage Still in C-collar although studies negative CXR tube in good position Lactic acid down to 1.2 Transaminase elevation noted Donor alliance aware Plan: Rewarming to start soon. Will add Protonix and Carafate. PAD#2 08/09/2017 Re-warming not yet complete. He is still paralyzed with Vecuronium. NG clearing Still in C-collar FX left 7&8 robs - no PTX required increased respiratory support last PM - Bronch pending today Plan: Continue rewarming and reassessment Re-check LFTs PAD#3 08/10/2017 Assessment: Precedex and Ativan recent doses result in some confusion. He is unclear as to where he is and states that it is 1998. Otherwise neurologically intact. Plan: Dr Jenny Romero (psychiatry) to see this afternoon speech to eval swallow HACA cath to be removed at 2 PM. Subjective: patient confused Objective: Vital Signs Temp Pulse Resp BP Pulse Ox 37.2 C 100 22 H 127/77 H 98 08/10/17 06:00 08/10/17 07:00 08/10/17 07:00 08/10/17 07:00 08/10/17 07:00 Laboratory Results 08/09/17 18:30 08/10/17 04:30 08/09/17 08/10/17 08/11/17 05:59 05:59 05:59 Intake Total 3074.9 2551.9 Output Total 2975 1800 Balance 99.9 751.9 PT 14.8 SEC (12.0-15.0) 08/09/17 18:30 INR 1.16 (0.83-1.16) 08/09/17 18:30 - C-Spine Clearance Cervical Spine Cleared: No Physical Exam - Physical Exam General Appearance: WD/WN, no apparent distress Neck: non-tender, full range of motion, supple Respiratory: chest non-tender, lungs clear, normal breath sounds Cardiac/Chest: regular rate, rhythm Abdomen: normal bowel sounds, non-tender, soft Male Genitalia: deferred, normal genitalia Rectal: deferred Skin: normal color, warm/dry Extremities: normal range of motion, non-tender, normal inspection Neuro/Psych: no motor/sensory deficits Time Spent w/Patient (minutes): 25
[2017-08-10 08:16] LABS: PLATELET COUNT 204 10^3/uL (150-400)
[2017-08-10] MEDS ORDERED: LANSOPRAZOLE SUSP 30MG/10ML UDSYR (Adult) PO SCH (09:00)
[2017-08-10] MEDS: THIAMINE HCL 500 MG in NS 100 ML IV SCH (09:16)
[2017-08-10] MEDS: CHLORHEXIDINE GLUCONATE 15 ML UDL PO SCH (09:16)
[2017-08-10] MEDS: ENOXAPARIN 40 MG/0.4 ML SYR SC SCH (09:16)
[2017-08-10] MEDS: ERTAPENEM 1 GM in NS 100 ML IV SCH (09:16)
[2017-08-10] MEDS: LANSOPRAZOLE SUSP 30MG/10ML UDSYR (Adult) PO SCH (11:01)
[2017-08-10] MEDS: ACETAMINOPHEN 500 MG TAB PO SCH ×2 (13:26→22:42)
[2017-08-10] MEDS ORDERED: K PHOS 10 MMOL in D5W 250 ML IV ONE (16:30)
--- NOTE | 2017-08-10 17:03 | PDINTPN ---
Green Building Energy Engineer Progress Note Assessment/Plan: Assessment/plan: 36 M with history of etoh in senior living for DUI apparently hanged himself and had cardiac arrest, but successfully resuscitated. Started HACA protocol which completed. * Arrest 2/2 asphyxiation, presumed intentional. Will eventually need psych eval. Currently still a prisoner, so monitored by police at bedside. Mental status uncertain at the moment. He barely answers questions but does follow commands. * Delerium- as above, though I suspect he is at risk for etoh wd. CIWA started. * Aspiration - ertapenem started 08/09. Now afebrile (Tm 38.4) but slight rise in WBC. Observe. * Rib fractures likely from CPR * Subjective: confused Objective: Vital Signs Temp Pulse Resp BP Pulse Ox 37.2 C 100 22 H 127/77 H 98 08/10/17 06:00 08/10/17 07:00 08/10/17 07:00 08/10/17 07:00 08/10/17 07:00 Laboratory Results 08/10/17 08:08 08/10/17 04:30 08/09/17 08/10/17 08/11/17 05:59 05:59 05:59 Intake Total 3074.9 2551.9 Output Total 2975 1800 Balance 99.9 751.9 PT 14.8 SEC (12.0-15.0) 08/09/17 18:30 INR 1.16 (0.83-1.16) 08/09/17 18:30 Physical Exam - Physical Exam General Appearance: no apparent distress, obtunded (mildly) EENT: PERRL/EOMI Neck: supple Respiratory: lungs clear, normal breath sounds, No respiratory distress Cardiac/Chest: regular rate, rhythm, No edema Abdomen: non-tender, soft, No distended Skin: diaphoresis, No cyanosis Lymphatic: no adenopathy Extremities: No pedal edema Neuro/Psych: no motor/sensory deficits, alert, cognition abnormalities ICD10 Worksheet Patient Problems: Problems Problem Status Onset Cardiac arrest Acute Hanging Acute Hypoxic brain injury Acute
[2017-08-11] MEDS: PETROLAT,WHT/MIN OIL/SOD CHL 3.5 GM OPHT.OINT EACHEYE SCH ×3 (00:12→12:15)
[2017-08-11] MEDS: CHLORHEXIDINE GLUCONATE 15 ML UDL PO SCH ×2 (00:12→07:41)
[2017-08-11] MEDS: SUCRALFATE 1 GM/10 ML UDCUP PO SCH ×3 (00:13→08:19)
[2017-08-11] MEDS: LORazepam 2 MG/ML INJ IVP PRN ×2 (01:49→15:40)
[2017-08-11 04:55] LABS: PLATELET COUNT 232 10^3/uL (150-400)
[2017-08-11] MEDS: ACETAMINOPHEN 500 MG TAB PO SCH ×3 (06:03→21:44)
--- NOTE | 2017-08-11 07:57 | TRAUMAPN ---
- Problem/Surgery Performed (1) Cardiac arrest Assessment/Plan: Current vitals stable. Rib fractures secondary to CPR for anoxic arrest. Status post rewarming protocol no current cardiac issues (2) Hanging Assessment/Plan: This is a 36-year-old gentleman who was found in longterm without vital signs after hanging attempt. Patient was brought emergently to the hospital as a full activation CPR ongoing. He recovered vital signs. HACA rewarming protocol was used and the patient has regained consciousness however he still has what appears to be an anoxic brain injury. He was unable to participate speech and swallow evaluation. He is amnestic to the event today recall his name but is not oriented to place or time. Psych evaluation is pending. Neurology has been call today. On exam he responds to voice. Extraocular motions are intact. tongue is midline. no JVD, no thyromegaly. lungs are coarse bilaterally. abdomen is soft nondistended no focal neurologic deficits equal bilateral muscle strength. Pupils equal reactive. Invanz has been started for possible aspiration chest x-ray was reviewed Right lower lobe and perihilar consolidation left retrocardiac consolidation Imaging Impressions Chest X-Ray 08/11/17 06:00 Impression: Little if any change since yesterday. Plan would be to continue current antibiotic protocol Psych evaluation ongoing Neurology called for opinion and input regarding anoxic brain injury PT/OT Plan to call his mother [phone] for update regarding his care Likely continue an ICU versus step-down for impulsive behavior and requirement for 1-1 Qualifiers: Encounter type: initial encounter Qualified Code(s): T71.164A - Asphyxiation due to hanging, undetermined, initial encounter (3) Hypoxic brain injury Assessment/Plan: Secondary to hanging will get neurologic evaluation today continue psych management and speech and swallow to re-evaluate today regarding ability this swallow and voice/larynx trauma Objective: Vital Signs Temp Pulse Resp BP Pulse Ox 37.6 C 106 H 26 H 144/88 H 96 08/11/17 06:00 08/11/17 07:00 08/11/17 07:00 08/11/17 07:00 08/11/17 07:00 Laboratory Results 08/11/17 04:40 08/11/17 04:40 08/10/17 08/11/17 08/12/17 05:59 05:59 05:59 Intake Total 2551.9 1887 Output Total 1800 1350 Balance 751.9 537 PT 14.8 SEC (12.0-15.0) 08/09/17 18:30 INR 1.16 (0.83-1.16) 08/09/17 18:30 - C-Spine Clearance Cervical Spine Cleared: No
[2017-08-11] MEDS: THIAMINE HCL 500 MG in NS 100 ML IV SCH (08:19)
[2017-08-11] MEDS: ERTAPENEM 1 GM in NS 100 ML IV SCH (08:19)
[2017-08-11] MEDS: ENOXAPARIN 40 MG/0.4 ML SYR SC SCH (08:19)
[2017-08-11] MEDS: LANSOPRAZOLE SUSP 30MG/10ML UDSYR (Adult) PO SCH (08:19)
[2017-08-11] MEDS: NS 1,000 ML IV SCH (08:20)
--- NOTE | 2017-08-11 11:24 | GCON ---
[f rep st] CONSULTATION NEUROLOGY CONSULTATION DATE OF CONSULTATION: 08/11/2017 CHIEF COMPLAINT: Encephalopathy, status post HACA procedure. HISTORY OF PRESENT ILLNESS: The patient is a 36-year-old gentleman who was brought in from the [facility] care home, for which he was apparently incarcerated for DUI based on reviewing medical records. In any case, the patient attempted suicide via hanging in care home, and was found to have pulseless electrical activity by the stat team there. He apparently had 10 minutes of CPR for the PEA, and received 1 or 2 shocks, and regained a palpable pulse. In our Emergency Department, he was immediately put on HACA protocol after the standard workup was initiated. He had a head CT upon admission without any significant abnormalities seen. CT angiogram of the neck to the base of the skull was essentially normal. There was no evidence of acute cervical spinal injury or vascular injury. He was rewarmed yesterday morning, and now is awake and alert, but confused. There have been no seizures. He has had some agitated behavior. For the patient's past medical history, social history, allergies, home medications, please refer to the history and physical by Dr. Suazo on 2016. REVIEW OF SYSTEMS: Not obtainable based on the patient's mental status. PHYSICAL EXAM: VITAL SIGNS: Today, blood pressure is 137/79. His temperature is 37.6, respirations 22 per minute, O2 sats 99%. GENERAL: The patient is awake and alert, and maintained eye contact with me when I entered the room intermittently. He did answer questions with a soft voice that was somewhat difficult to understand due to the volume. However, he was forming coherent sentences intermittently. NEURO: On cranial nerve exam, pupils are reactive, and he has conjugate extraocular movements. On general motor exam, there is no evidence of overt or subtle convulsive activity. No myoclonus or nystagmoid movements. He was moving all 4 extremities equally and withdrawing equally. Sensory exam and coordination unobtainable. 50 total minutes floor time; over 50% in reviewing previous hospital records, imaging and coordination of care. IMPRESSION: 1. Status post hypothermia after cardiac arrest protocol. 2. Encephalopathy. 3. History of alcohol misuse. PLAN: The patient's clinical history and current exam may suggest some underlying degree of hypoxic-ischemic encephalopathy/brain injury along with superimposed delirium from the acute event, and with possible withdrawal effects from alcohol. He should be continued on CIWA protocol, supplemental thiamine and a banana bag. Based on the patient's current mental status, I do not think an MRI brain would be feasible due to probable motion artifact. Moreover, it would not microsoft exchange administrator at this point. I recommend maximal therapy of his underlying medical conditions and observation from a neurologic standpoint. I suspect he will continue to improve over the next several days, in terms of his mental status, but certainly may have some long-term underlying cognitive deficits from probable hypoxic brain injury. This certainly can be addressed as an outpatient by Occupational Therapy when appropriate. No further recommendations now. We will continue to follow this patient as needed. Please do not hesitate to call if there are any questions or changes in neurologic status. /[id number]/MODL MTDD
--- NOTE | 2017-08-11 11:24 | GCON ---
[f rep st] CONSULTATION NEUROLOGY CONSULTATION DATE OF CONSULTATION: 08/11/2017 CHIEF COMPLAINT: Encephalopathy, status post HACA procedure. HISTORY OF PRESENT ILLNESS: The patient is a 36-year-old gentleman who was brought in from the [facility] retirement, for which he was apparently incarcerated for DUI based on reviewing medical records. In any case, the patient attempted suicide via hanging in retirement, and was found to have pulseless electrical activity by the stat team there. He apparently had 10 minutes of CPR for the PEA, and received 1 or 2 shocks, and regained a palpable pulse. In our Emergency Department, he was immediately put on HACA protocol after the standard workup was initiated. He had a head CT upon admission without any significant abnormalities seen. CT angiogram of the neck to the base of the skull was essentially normal. There was no evidence of acute cervical spinal injury or vascular injury. He was rewarmed yesterday morning, and now is awake and alert, but confused. There have been no seizures. He has had some agitated behavior. For the patient's past medical history, social history, allergies, home medications, please refer to the history and physical by Dr. Suazo on 2016. REVIEW OF SYSTEMS: Not obtainable based on the patient's mental status. PHYSICAL EXAM: VITAL SIGNS: Today, blood pressure is 137/79. His temperature is 37.6, respirations 22 per minute, O2 sats 99%. GENERAL: The patient is awake and alert, and maintained eye contact with me when I entered the room intermittently. He did answer questions with a soft voice that was somewhat difficult to understand due to the volume. However, he was forming coherent sentences intermittently. NEURO: On cranial nerve exam, pupils are reactive, and he has conjugate extraocular movements. On general motor exam, there is no evidence of overt or subtle convulsive activity. No myoclonus or nystagmoid movements. He was moving all 4 extremities equally and withdrawing equally. Sensory exam and coordination unobtainable. 50 total minutes floor time; over 50% in reviewing previous hospital records, imaging and coordination of care. IMPRESSION: 1. Status post hypothermia after cardiac arrest protocol. 2. Encephalopathy. 3. History of alcohol misuse. PLAN: The patient's clinical history and current exam may suggest some underlying degree of hypoxic-ischemic encephalopathy/brain injury along with superimposed delirium from the acute event, and with possible withdrawal effects from alcohol. He should be continued on CIWA protocol, supplemental thiamine and a banana bag. Based on the patient's current mental status, I do not think an MRI brain would be feasible due to probable motion artifact. Moreover, it would not guide changer at this point. I recommend maximal therapy of his underlying medical conditions and observation from a neurologic standpoint. I suspect he will continue to improve over the next several days, in terms of his mental status, but certainly may have some long-term underlying cognitive deficits from probable hypoxic brain injury. This certainly can be addressed as an outpatient by Occupational Therapy when appropriate. No further recommendations now. We will continue to follow this patient as needed. Please do not hesitate to call if there are any questions or changes in neurologic status. /[id number]/MODL MTDD
--- NOTE | 2017-08-11 11:24 | GCON ---
[f rep st] CONSULTATION NEUROLOGY CONSULTATION DATE OF CONSULTATION: 08/11/2017 CHIEF COMPLAINT: Encephalopathy, status post HACA procedure. HISTORY OF PRESENT ILLNESS: The patient is a 36-year-old gentleman who was brought in from the [facility] halfway, for which he was apparently incarcerated for DUI based on reviewing medical records. In any case, the patient attempted suicide via hanging in halfway, and was found to have pulseless electrical activity by the stat team there. He apparently had 10 minutes of CPR for the PEA, and received 1 or 2 shocks, and regained a palpable pulse. In our Emergency Department, he was immediately put on HACA protocol after the standard workup was initiated. He had a head CT upon admission without any significant abnormalities seen. CT angiogram of the neck to the base of the skull was essentially normal. There was no evidence of acute cervical spinal injury or vascular injury. He was rewarmed yesterday morning, and now is awake and alert, but confused. There have been no seizures. He has had some agitated behavior. For the patient's past medical history, social history, allergies, home medications, please refer to the history and physical by Dr. Suazo on 2016. REVIEW OF SYSTEMS: Not obtainable based on the patient's mental status. PHYSICAL EXAM: VITAL SIGNS: Today, blood pressure is 137/79. His temperature is 37.6, respirations 22 per minute, O2 sats 99%. GENERAL: The patient is awake and alert, and maintained eye contact with me when I entered the room intermittently. He did answer questions with a soft voice that was somewhat difficult to understand due to the volume. However, he was forming coherent sentences intermittently. NEURO: On cranial nerve exam, pupils are reactive, and he has conjugate extraocular movements. On general motor exam, there is no evidence of overt or subtle convulsive activity. No myoclonus or nystagmoid movements. He was moving all 4 extremities equally and withdrawing equally. Sensory exam and coordination unobtainable. 50 total minutes floor time; over 50% in reviewing previous hospital records, imaging and coordination of care. IMPRESSION: 1. Status post hypothermia after cardiac arrest protocol. 2. Encephalopathy. 3. History of alcohol misuse. PLAN: The patient's clinical history and current exam may suggest some underlying degree of hypoxic-ischemic encephalopathy/brain injury along with superimposed delirium from the acute event, and with possible withdrawal effects from alcohol. He should be continued on CIWA protocol, supplemental thiamine and a banana bag. Based on the patient's current mental status, I do not think an MRI brain would be feasible due to probable motion artifact. Moreover, it would not microsoft exchange architect at this point. I recommend maximal therapy of his underlying medical conditions and observation from a neurologic standpoint. I suspect he will continue to improve over the next several days, in terms of his mental status, but certainly may have some long-term underlying cognitive deficits from probable hypoxic brain injury. This certainly can be addressed as an outpatient by Occupational Therapy when appropriate. No further recommendations now. We will continue to follow this patient as needed. Please do not hesitate to call if there are any questions or changes in neurologic status. /[id number]/MODL MTDD
--- NOTE | 2017-08-11 15:05 | ASMTCMCOM ---
CM Note CM Note Notes: Patient's mother, Eve, contacted CM and asked that she be made his MPOA. It was explained to mother that patient was unable to make decisions at this time so could not name a MPOA, but she possibly could be his Medical Proxy and that the Polishing Wheel Setter would be calling her. THis CM contacted the Dispatch Specialist's phone# in patient's chart. Patient will be returned to [facility] when medically cleared and discharged. Call [phone] for transport. Discharge orders need to be written, meds reconciled and faxed to [facility] [phone]; Date Signed: 08/11/2017 03:05 PM Electronically Signed By:Therese Irizarry LCSW
--- NOTE | 2017-08-11 15:05 | ASMTCMCOM ---
CM Note CM Note Notes: Patient's mother, Eve, contacted CM and asked that she be made his MPOA. It was explained to mother that patient was unable to make decisions at this time so could not name a MPOA, but she possibly could be his Medical Proxy and that the Fondant Puff Maker would be calling her. THis CM contacted the Civil Engineering Technician's phone# in patient's chart. Patient will be returned to halfway when medically cleared and discharged. Call [phone] for transport. Discharge orders need to be written, meds reconciled and faxed to [facility] [phone]; Date Signed: 08/11/2017 03:05 PM Electronically Signed By:Therese Irizarry LCSW
--- NOTE | 2017-08-11 15:05 | ASMTCMCOM ---
CM Note CM Note Notes: Patient's mother, Eve, contacted CM and asked that she be made his MPOA. It was explained to mother that patient was unable to make decisions at this time so could not name a MPOA, but she possibly could be his Medical Proxy and that the Elementary School Band Director would be calling her. THis CM contacted the Component Assembler's phone# in patient's chart. Patient will be returned to [facility] when medically cleared and discharged. Call [phone] for transport. Discharge orders need to be written, meds reconciled and faxed to [facility] [phone]; Date Signed: 08/11/2017 03:05 PM Electronically Signed By:Therese Irizarry LCSW
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
[2017-08-11] MEDS: DEXMEDETOMIDINE IN 0.9 % NACL 100 ML IV SCH (21:44)
[2017-08-12] MEDS: ACETAMINOPHEN 500 MG TAB PO SCH ×3 (06:21→21:18)
[2017-08-12 08:35] LABS: PLATELET COUNT 236 10^3/uL (150-400)
[2017-08-12] MEDS: THIAMINE HCL 100 MG TAB PO SCH (08:39)
[2017-08-12] MEDS: ERTAPENEM 1 GM in NS 100 ML IV SCH (08:39)
[2017-08-12] MEDS: LANSOPRAZOLE SUSP 30MG/10ML UDSYR (Adult) PO SCH (08:39)
[2017-08-12] MEDS: ENOXAPARIN 40 MG/0.4 ML SYR SC SCH (08:39)
[2017-08-12] MEDS: PANTOPRAZOLE SODIUM 40 MG TAB PO SCH (16:06)
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
--- NOTE | 2017-08-12 19:21 | TRAUMAPN ---
Assessment/Plan: (1) Cardiac arrest Assessment/Plan: Current vitals stable. Rib fractures secondary to CPR for anoxic arrest. Status post rewarming protocol no current cardiac issues (2) Hanging Assessment/Plan: This is a 36-year-old gentleman who was found in long-term without vital signs after hanging attempt. Patient was brought emergently to the hospital as a full activation CPR ongoing. He recovered vital signs. HACA rewarming protocol was used and the patient has regained consciousness however he still has what appears to be an anoxic brain injury. He is oriented X 1. He is less impulsive today (yesterday inappropriate verbage and striking out at staff) Neurology recommends medical treatment for underlying issues and working with OT Per report has been dc from long-term. Will need to look for placement for patients with anoxic brain injury S: Alert and responds to voice. I had trouble following what he was saying Objective: Vital Signs Temp Pulse Resp BP Pulse Ox 37.0 C 81 22 H 126/79 H 98 08/12/17 16:00 08/12/17 18:00 08/12/17 18:00 08/12/17 18:00 08/12/17 18:00 Laboratory Results 08/12/17 08:30 08/12/17 08:30 08/11/17 08/12/17 08/13/17 05:59 05:59 05:59 Intake Total 1887 1352 1332 Output Total 1350 1425 500 Balance 537 -73 832 PT 14.8 SEC (12.0-15.0) 08/09/17 18:30 INR 1.16 (0.83-1.16) 08/09/17 18:30 - C-Spine Clearance Cervical Spine Cleared: No Physical Exam - Physical Exam General Appearance: WD/WN, alert, no apparent distress EENT: PERRL/EOMI, normal ENT inspection, TM abnormal (L), No scleral icterus (R) , No scleral icterus (L), No hearing deficit Neck: non-tender, full range of motion Respiratory: lungs clear, normal breath sounds, decreased breath sounds (bases) , No accessory muscle use Cardiac/Chest: regular rate, rhythm, No edema Abdomen: normal bowel sounds, non-tender, soft Extremities: normal range of motion Neuro/Psych: other (unable to follow what he is saying)
--- NOTE | 2017-08-12 19:21 | TRAUMAPN ---
Assessment/Plan: (1) Cardiac arrest Assessment/Plan: Current vitals stable. Rib fractures secondary to CPR for anoxic arrest. Status post rewarming protocol no current cardiac issues (2) Hanging Assessment/Plan: This is a 36-year-old gentleman who was found in halfway without vital signs after hanging attempt. Patient was brought emergently to the hospital as a full activation CPR ongoing. He recovered vital signs. HACA rewarming protocol was used and the patient has regained consciousness however he still has what appears to be an anoxic brain injury. He is oriented X 1. He is less impulsive today (yesterday inappropriate verbage and striking out at staff) Neurology recommends medical treatment for underlying issues and working with OT Per report has been dc from halfway. Will need to look for placement for patients with anoxic brain injury S: Alert and responds to voice. I had trouble following what he was saying Objective: Vital Signs Temp Pulse Resp BP Pulse Ox 37.0 C 81 22 H 126/79 H 98 08/12/17 16:00 08/12/17 18:00 08/12/17 18:00 08/12/17 18:00 08/12/17 18:00 Laboratory Results 08/12/17 08:30 08/12/17 08:30 08/11/17 08/12/17 08/13/17 05:59 05:59 05:59 Intake Total 1887 1352 1332 Output Total 1350 1425 500 Balance 537 -73 832 PT 14.8 SEC (12.0-15.0) 08/09/17 18:30 INR 1.16 (0.83-1.16) 08/09/17 18:30 - C-Spine Clearance Cervical Spine Cleared: No Physical Exam - Physical Exam General Appearance: WD/WN, alert, no apparent distress EENT: PERRL/EOMI, normal ENT inspection, TM abnormal (L), No scleral icterus (R) , No scleral icterus (L), No hearing deficit Neck: non-tender, full range of motion Respiratory: lungs clear, normal breath sounds, decreased breath sounds (bases) , No accessory muscle use Cardiac/Chest: regular rate, rhythm, No edema Abdomen: normal bowel sounds, non-tender, soft Extremities: normal range of motion Neuro/Psych: other (unable to follow what he is saying)
--- NOTE | 2017-08-12 19:21 | TRAUMAPN ---
Assessment/Plan: (1) Cardiac arrest Assessment/Plan: Current vitals stable. Rib fractures secondary to CPR for anoxic arrest. Status post rewarming protocol no current cardiac issues (2) Hanging Assessment/Plan: This is a 36-year-old gentleman who was found in half-way without vital signs after hanging attempt. Patient was brought emergently to the hospital as a full activation CPR ongoing. He recovered vital signs. HACA rewarming protocol was used and the patient has regained consciousness however he still has what appears to be an anoxic brain injury. He is oriented X 1. He is less impulsive today (yesterday inappropriate verbage and striking out at staff) Neurology recommends medical treatment for underlying issues and working with OT Per report has been dc from half-way. Will need to look for placement for patients with anoxic brain injury S: Alert and responds to voice. I had trouble following what he was saying Objective: Vital Signs Temp Pulse Resp BP Pulse Ox 37.0 C 81 22 H 126/79 H 98 08/12/17 16:00 08/12/17 18:00 08/12/17 18:00 08/12/17 18:00 08/12/17 18:00 Laboratory Results 08/12/17 08:30 08/12/17 08:30 08/11/17 08/12/17 08/13/17 05:59 05:59 05:59 Intake Total 1887 1352 1332 Output Total 1350 1425 500 Balance 537 -73 832 PT 14.8 SEC (12.0-15.0) 08/09/17 18:30 INR 1.16 (0.83-1.16) 08/09/17 18:30 - C-Spine Clearance Cervical Spine Cleared: No Physical Exam - Physical Exam General Appearance: WD/WN, alert, no apparent distress EENT: PERRL/EOMI, normal ENT inspection, TM abnormal (L), No scleral icterus (R) , No scleral icterus (L), No hearing deficit Neck: non-tender, full range of motion Respiratory: lungs clear, normal breath sounds, decreased breath sounds (bases) , No accessory muscle use Cardiac/Chest: regular rate, rhythm, No edema Abdomen: normal bowel sounds, non-tender, soft Extremities: normal range of motion Neuro/Psych: other (unable to follow what he is saying)
[2017-08-13] MEDS: DEXMEDETOMIDINE IN 0.9 % NACL 100 ML IV SCH (05:46)
[2017-08-13] MEDS: ACETAMINOPHEN 500 MG TAB PO SCH ×3 (05:46→22:14)
[2017-08-13 05:53] LABS: PLATELET COUNT 221 10^3/uL (150-400)
[2017-08-13] MEDS: ENOXAPARIN 40 MG/0.4 ML SYR SC SCH (09:23)
[2017-08-13] MEDS: PANTOPRAZOLE SODIUM 40 MG TAB PO SCH (09:24)
[2017-08-13] MEDS: ERTAPENEM 1 GM in NS 100 ML IV SCH (09:25)
[2017-08-13] MEDS: THIAMINE HCL 100 MG TAB PO SCH (09:25)
--- NOTE | 2017-08-13 12:30 | SOAPPROG ---
SOAP Progress Note Assessment/Plan: Assessment: 36-year-old male status post suicide attempt/hanging injury resulting in anoxic brain injury, rib fractures from CPR, patient also in alcohol withdrawal. Tolerating diet, impulsive per nursing, vital signs stable per nurse Physical exam Alert and oriented x2, follows gross motor commands although slightly confused Chest CTA bilaterally Plan: Continue alcohol withdrawal protocol Seen examined by Dr. Hoffman 08/13/17 12:28 Objective: Vital Signs Temp Pulse Resp BP Pulse Ox 36.8 C 76 19 135/86 H 96 08/13/17 04:00 08/13/17 05:57 08/13/17 05:57 08/13/17 05:57 08/13/17 05:57 Laboratory Results 08/13/17 05:40 08/13/17 05:40 08/12/17 08/13/17 08/14/17 05:59 05:59 05:59 Intake Total 1352 2796 Output Total 1425 1250 Balance -73 1546 PT 14.8 SEC (12.0-15.0) 08/09/17 18:30 INR 1.16 (0.83-1.16) 08/09/17 18:30 ICD10 Worksheet Patient Problems: Problems Problem Status Onset Cardiac arrest Acute Hanging Acute Hypoxic brain injury Acute
--- NOTE | 2017-08-13 15:46 | ASMTCMCOM ---
CM Note CM Note Notes: Chart reviewed. Patient suffering from anoxic brain injury, for cognitive evaluation. Patient needs to be placed on M1 hold and will need TLC evaluation when medically cleared. Spoke with [facility], patient granted temporary [place] cervantes on Thursday. Will need screening for medicaid. Message left with Mindy [place]. CM to follow. Date Signed: 08/13/2017 03:45 PM Electronically Signed By:Richelle Morales RN
--- NOTE | 2017-08-13 15:46 | ASMTCMCOM ---
CM Note CM Note Notes: Chart reviewed. Patient suffering from anoxic brain injury, for cognitive evaluation. Patient needs to be placed on M1 hold and will need TLC evaluation when medically cleared. Spoke with [facility], patient granted temporary [place] cervantes on Thursday. Will need screening for medicaid. Message left with Mindy Vegas. CM to follow. Date Signed: 08/13/2017 03:45 PM Electronically Signed By:Richelle Morales RN
--- NOTE | 2017-08-13 15:46 | ASMTCMCOM ---
CM Note CM Note Notes: Chart reviewed. Patient suffering from anoxic brain injury, for cognitive evaluation. Patient needs to be placed on M1 hold and will need TLC evaluation when medically cleared. Spoke with [facility], patient granted temporary [place] cervantes on Thursday. Will need screening for medicaid. Message left with Mindy Vegas. CM to follow. Date Signed: 08/13/2017 03:45 PM Electronically Signed By:Richelle Morales RN
--- NOTE | 2017-08-13 16:15 | PDINTPN ---
Finance Business Manager Progress Note Assessment/Plan: Assessment/plan: 36 M with history of etoh in [place] for [place]UI apparently hanged himself and had cardiac arrest, but successfully resuscitated. Started HACA protocol which completed. * Arrest 2/2 asphyxiation, presumed intentional. Will eventually need psych eval , but he has no decisional capacity at this time and will need proxy decision maker. His mental status contines to improve, though not yet normal. * Delerium- improved. Psych eval pending- called TLC today * Aspiration - discussed with ID and evidence to support aspiration PNA is limited so will dc abx and observe. * Rib fractures likely from CPR * OK for floor Subjective: stable overnight and now off precedex. Complains of ongoing rib pain Objective: Vital Signs Temp Pulse Resp BP Pulse Ox 37 C 79 16 146/91 H 94 08/13/17 12:00 08/13/17 12:00 08/13/17 12:00 08/13/17 12:00 08/13/17 12:00 Laboratory Results 08/13/17 05:40 08/13/17 05:40 08/12/17 08/13/17 08/14/17 05:59 05:59 05:59 Intake Total 1352 2796 450 Output Total 1425 1250 1000 Balance -73 1546 -550 PT 14.8 SEC (12.0-15.0) 08/09/17 18:30 INR 1.16 (0.83-1.16) 08/09/17 18:30 Physical Exam - Physical Exam General Appearance: alert, no apparent distress EENT: PERRL/EOMI Neck: supple Respiratory: lungs clear, normal breath sounds, No respiratory distress Cardiac/Chest: regular rate, rhythm, No edema Abdomen: non-tender, soft, No distended Skin: normal color, warm/dry Lymphatic: no adenopathy Extremities: No pedal edema Neuro/Psych: alert, normal mood/affect, cognition abnormalities ICD10 Worksheet Patient Problems: Problems Problem Status Onset Cardiac arrest Acute Hanging Acute Hypoxic brain injury Acute
[2017-08-14] MEDS: ACETAMINOPHEN 500 MG TAB PO SCH ×3 (05:58→22:30)
[2017-08-14 06:04] LABS: PLATELET COUNT 267 10^3/uL (150-400)
--- NOTE | 2017-08-14 09:21 | TRAUMAPN ---
- Problem/Surgery Performed (1) Cardiac arrest Assessment/Plan: Current vitals stable. Rib fractures secondary to CPR for anoxic arrest. Status post rewarming protocol no current cardiac issues pain well controlled (2) Hanging Assessment/Plan: This is a 36-year-old gentleman who was found in long-term without vital signs after hanging attempt. Patient was brought emergently to the hospital as a full activation CPR ongoing. He recovered vital signs. HACA rewarming protocol was used and the patient has regained consciousness however he still has what appears to be an anoxic brain injury. He was unable to participate speech and swallow evaluation. He is amnestic to the event today recall his name but is not oriented to place or time. Psych evaluation is pending. Neurology has been call today. On exam he responds to voice. Extraocular motions are intact. tongue is midline. no JVD, no thyromegaly. lungs are coarse bilaterally. abdomen is soft nondistended no focal neurologic deficits equal bilateral muscle strength. Pupils equal reactive. Invanz has been started for possible aspiration chest x-ray was reviewed Right lower lobe and perihilar consolidation left retrocardiac consolidation Imaging Impressions Chest X-Ray 08/11/17 06:00 Impression: Little if any change since yesterday. Plan would be to continue current antibiotic protocol Psych evaluation pending clearing sensorium Neurology called for opinion and input regarding anoxic brain injury PT/OT Likely continue an ICU versus step-down for impulsive behavior and requirement for 1-1 Qualifiers: Encounter type: initial encounter Qualified Code(s): T71.164A - Asphyxiation due to hanging, undetermined, initial encounter (3) Hypoxic brain injury Assessment/Plan: Secondary to hanging will get neurologic evaluation today continue psych management and speech and swallow to re-evaluate today regarding ability this swallow and voice/larynx trauma Voice better Ataxic PT eval/treatment Objective: Vital Signs Temp Pulse Resp BP Pulse Ox 36.9 C 76 16 158/93 H 94 08/14/17 04:00 08/14/17 06:00 08/14/17 06:00 08/14/17 06:00 08/14/17 06:00 Laboratory Results 08/14/17 05:45 08/14/17 05:45 08/13/17 08/14/17 08/15/17 05:59 05:59 05:59 Intake Total 2796 1050 Output Total 1250 1500 Balance 1546 -450 PT 14.8 SEC (12.0-15.0) 08/09/17 18:30 INR 1.16 (0.83-1.16) 08/09/17 18:30 - C-Spine Clearance Cervical Spine Cleared: No
[2017-08-14] MEDS: KETOROLAC 15 MG/1 ML SDV IVP PRN (10:20)
[2017-08-14] MEDS: ENOXAPARIN 40 MG/0.4 ML SYR SC SCH (10:21)
[2017-08-14] MEDS: THIAMINE HCL 100 MG TAB PO SCH (10:21)
[2017-08-14] MEDS: PANTOPRAZOLE SODIUM 40 MG TAB PO SCH (10:21)
--- NOTE | 2017-08-14 11:41 | ASMTCMCOM ---
CM Note CM Note Notes: Psychiatrist met with patient today and determined that he does not need to be on an M1hold. She ok'ed his transfer to the Med-Surg floor and referral to inpatient rehab. RN to order rehab consult. Per Adamaris Virk, patient's mom (healthcare proxy) has Medicaid application paperwork and needs to submit to [facility]. Discharge plan TBD. CM will follow. Date Signed: 08/14/2017 11:40 AM Electronically Signed By:Radha Guillory RN
--- NOTE | 2017-08-14 11:41 | ASMTCMCOM ---
CM Note CM Note Notes: Psychiatrist met with patient today and determined that he does not need to be on an M1hold. She ok'ed his transfer to the Med-Surg floor and referral to inpatient rehab. RN to order rehab consult. Per Adamaris Virk, patient's mom (healthcare proxy) has Medicaid application paperwork and needs to submit to [facility]. Discharge plan TBD. CM will follow. Date Signed: 08/14/2017 11:40 AM Electronically Signed By:Radha Guillory RN
--- NOTE | 2017-08-14 11:41 | ASMTCMCOM ---
CM Note CM Note Notes: Psychiatrist met with patient today and determined that he does not need to be on an M1hold. She ok'ed his transfer to the Med-Surg floor and referral to inpatient rehab. RN to order rehab consult. Per Adamaris Virk, patient's mom (healthcare proxy) has Medicaid application paperwork and needs to submit to [facility]. Discharge plan TBD. CM will follow. Date Signed: 08/14/2017 11:40 AM Electronically Signed By:Radha Guillory RN
--- NOTE | 2017-08-14 21:02 | PDCONSULT ---
Cook Taco Note: PSYCHIATRY CONSULTATION: Requested by trauma service to assess for M-1 due to patient's recent nearly successful suicide attempt by hanging. Date of evaluation: 08/14/2017 Time spent: 45min with patient, 10min with mother on phone Reviewed patient history in EMR and discussed case with staff. BRIEF HISTORY: 36yo CM with history of alcohol use disorder admitted to [facility] after found hanging and without vital signs in [facility] after arrest for DUI. 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 Attempted to interview patient on 08/10/17 but he was not oriented to place/time /situation, very slow to respond and with nearly unintelligible speech. On interview this AM, pt had just completed ST assessment on which numerous deficits were noted, per ST. MSE: Patient was in bed, resting, in hosp gown, engaged verbally, with good eye contact, somewhat dysarthic speech but not pressured, normal to slower rate speech, affect generally constricted but smiling appropriately and did laugh briefly (regarding probation, stating the one year he had "may be longer now!") , mood "fine", thought processes with linear responses but noted with inconsistent reporting of dates and amnestic for events surrounding brain injury. He denied any auditory or visual hallucinations, and there was no delusional thoughts or paranoia noted. He consistently denied any suicidal thoughts or any thoughts to harm others. Insight was poor, judgment was poor. cognition impaired. He reported feeling that he was getting better every day, and hopes to leave hospital soon to return to his residence and work. Was disappointed to hear he would likely need longer stay in rehab facility. Stated he was here "because I made a stupid decision...they said I tried to [facility] myself in [facility]." Last recalls being at a friend's house and driving home , "I must've been intoxicated enough to get a DUI". Doesn't recall again until waking up in hospital a couple of days later. States he was told what happened but has no recall. "They said I tried to hang myself with a bed sheet...I think I was upset that I'd done that sh*t again and was mad at myself (drunk driving and fci)." Does not currently feel he needs to be in substance treatment or rehab. "I think I just need to quit drinking altogether...and driving." Recognizes current DUI violated probation, and with likely consequence of fci time. If this is the case, denied feeling this would make him feel suicidal or depressed , "no, I'd just have to do it (fci)." Denied any alcohol cravings. Denied feeling depressed or hopeless. Consistently denied feeling suicidal, no thoughts, plan or intent. Does not recall his attempted hanging. Denied psychotic symptoms, denied feeling anxious, irritable or angry. Denied feeling upset about current situation, "I'm getting better everyday...I'm glad to be alive...I'm optimistic". Gave verbal permission for collateral from mother. PAST PSYCH HX: Denied any history of previously being suicidal, no prior psych hospitalizations or therapy or psychiatric medication/treatment. Denied history of psychosis or suicide or mood disorder. Denied hx of violence towards others. SUBSTANCE USE: Admits EtOH problematic "since my 20's". Denied hx of any prior EtOH/substance treatment programs. 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 Denied other drug use except +THC "in the past, not now". FAM HX: +EtOH: father (who is sober now) and 2 paternal uncles. Denied any family hx of mental illness other substance use or any suicide/attempts in family. 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 States he moved to [place] about 2 months ago. This didn't fit with timeline of other history provided, changed to "maybe 6 months ago", or perhaps 2 years ago. Not sure how long ago he moved to [place]. Lives with a friend in an apt. Reports never , no kids. Has one sister, mother resides in [place] and father in [place]. Parents when patient was 19. Mother designated as medical POA since patient has been in hospital. LEGAL HX: Denied past legal until 1st DUI in [place], "120 days, work release". Currently on probation x 1 year, doing classes. 2nd DUI prior to admission. At least one prior DUI in [facility] case was dismissed. ASSESSMENT: 36yoCM with EtOH dependence, and no reported past psych hx, s/p suicide attempt by hanging while in [facility] for [facility], sustaining hypoxic/anoxic brain injury. Does not recall event nor details surrounding event. Does not feel suicidal now , did not recall feeling suicidal, and is speculative as to why he may have attempted suicide when in [facility], and apparently was intoxicated at the time. Denied feeling depressed. Is not suicidal, and has no thoughts to harm others. Does not meet criteria for an M-1 hold. However, has notable cognitive and physical deficits due to his brain injury, and will likely not be able to return to prior baseline level of functioning. Seems without insight into this ( hoping to return home soon and to work), and without insight into the severity and likely long-term sequelae. This lack of insight/awareness may also be a deficit related to his brain injury, so he would not be deemed safe to leave the hospital at this time. Additionally, would need periodic reassessment of his mental health status and safety/suicidal thoughts, since TBI independently increases risk of depression, and patient may struggle more emotionally as he gains awareness of his limitations. DIAGNOSIS: Neurocognitive disorder, moderate, due to TBI (hypoxic/anoxic brain injury 2/2 hanging) EtOH use disorder, severe -no indication for M-1 hold at this time. -periodic reassessment for any mood instability or any emergence of suicidal thoughts as patient's course progresses, including as patient gains increased awareness of his deficits, also given mother's report of +family hx of mood d/o. -felt not to be safe to leave hospital medically, based on lack of insight/ judgment related to brain injury Collateral obtained from mother (08/14/17): States patient has been struggling since in [place] over the past year, thinks he moved to [place] in 06/2016 and got 1st DUI in 08/2106. Has hx of 2 prior DUI in [place] but just fined, rules in [place] are different. Because of this, after 1st DUI in [place] , patient's drivers license was suspended, spent time in [facility]ci, but released on work-release, was subjected to random Utox 2x/week and drug/EtOH classes which were difficult to attend without driving, "had to use the bus or bike", and caused increased financial stressors for the pt. Mother was surprised to hear he had attempted suicide, she felt this was "very uncharacteristic". States, up until recently, he seems to have been compliant with legal requirements of DUI, although was struggling due to reasons she noted above. Does feel he may have been sometime feeling depressed or anxious about his situation, but never before suicidal. Denied that pt had any prior psychiatric treatment or symptoms, but +FHx of EtOH and mental health. States father, maternal grandmother and paternal grandmother all diagnosed with Bipolar, and EtOH hx, and have been psychiatrically hospitalized, and father on disability for mental health. Denies knowledge of any other subst use in patient except past THC, and tried cocaine, but long EtOH hx.
--- NOTE | 2017-08-14 21:02 | PDCONSULT ---
Leach Cell Operator Note: PSYCHIATRY CONSULTATION: Requested by trauma service to assess for M-1 due to patient's recent nearly successful suicide attempt by hanging. Date of evaluation: 08/14/2017 Time spent: 45min with patient, 10min with mother on phone Reviewed patient history in EMR and discussed case with staff. BRIEF HISTORY: 36yo CM with history of alcohol use disorder admitted to [facility] after found hanging and without vital signs in care home after arrest for DUI. 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 Attempted to interview patient on 08/10/17 but he was not oriented to place/time /situation, very slow to respond and with nearly unintelligible speech. On interview this AM, pt had just completed ST assessment on which numerous deficits were noted, per ST. MSE: Patient was in bed, resting, in hosp gown, engaged verbally, with good eye contact, somewhat dysarthic speech but not pressured, normal to slower rate speech, affect generally constricted but smiling appropriately and did laugh briefly (regarding probation, stating the one year he had "may be longer now!") , mood "fine", thought processes with linear responses but noted with inconsistent reporting of dates and amnestic for events surrounding brain injury. He denied any auditory or visual hallucinations, and there was no delusional thoughts or paranoia noted. He consistently denied any suicidal thoughts or any thoughts to harm others. Insight was poor, judgment was poor. cognition impaired. He reported feeling that he was getting better every day, and hopes to leave hospital soon to return to his residence and work. Was disappointed to hear he would likely need longer stay in rehab facility. Stated he was here "because I made a stupid decision...they said I tried to hang myself in care home." Last recalls being at a friend's house and driving home , "I must've been intoxicated enough to get a DUI". Doesn't recall again until waking up in hospital a couple of days later. States he was told what happened but has no recall. "They said I tried to hang myself with a bed sheet...I think I was upset that I'd done that sh*t again and was mad at myself (drunk driving and care home)." Does not currently feel he needs to be in substance treatment or rehab. "I think I just need to quit drinking altogether...and driving." Recognizes current DUI violated probation, and with likely consequence of care home time. If this is the case, denied feeling this would make him feel suicidal or depressed , "no, I'd just have to do it (care home)." Denied any alcohol cravings. Denied feeling depressed or hopeless. Consistently denied feeling suicidal, no thoughts, plan or intent. Does not recall his attempted hanging. Denied psychotic symptoms, denied feeling anxious, irritable or angry. Denied feeling upset about current situation, "I'm getting better everyday...I'm glad to be alive...I'm optimistic". Gave verbal permission for collateral from mother. PAST PSYCH HX: Denied any history of previously being suicidal, no prior psych hospitalizations or therapy or psychiatric medication/treatment. Denied history of psychosis or suicide or mood disorder. Denied hx of violence towards others. SUBSTANCE USE: Admits EtOH problematic "since my 20's". Denied hx of any prior EtOH/substance treatment programs. 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 Denied other drug use except +THC "in the past, not now". FAM HX: +EtOH: father (who is sober now) and 2 paternal uncles. Denied any family hx of mental illness other substance use or any suicide/attempts in family. 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 States he moved to [place] about 2 months ago. This didn't fit with timeline of other history provided, changed to "maybe 6 months ago", or perhaps 2 years ago. Not sure how long ago he moved to [place]. Lives with a friend in an apt. Reports never , no kids. Has one sister, mother resides in [place] and father in [place]. Parents when patient was 19. Mother designated as medical POA since patient has been in hospital. LEGAL HX: Denied past legal until 1st DUI in [place], "120 days, work release". Currently on probation x 1 year, doing classes. 2nd DUI prior to admission. At least one prior DUI in [facility] case was dismissed. ASSESSMENT: 36yoCM with EtOH dependence, and no reported past psych hx, s/p suicide attempt by hanging while in care home for DUI, sustaining hypoxic/anoxic brain injury. Does not recall event nor details surrounding event. Does not feel suicidal now , did not recall feeling suicidal, and is speculative as to why he may have attempted suicide when in care home, and apparently was intoxicated at the time. Denied feeling depressed. Is not suicidal, and has no thoughts to harm others. Does not meet criteria for an M-1 hold. However, has notable cognitive and physical deficits due to his brain injury, and will likely not be able to return to prior baseline level of functioning. Seems without insight into this ( hoping to return home soon and to work), and without insight into the severity and likely long-term sequelae. This lack of insight/awareness may also be a deficit related to his brain injury, so he would not be deemed safe to leave the hospital at this time. Additionally, would need periodic reassessment of his mental health status and safety/suicidal thoughts, since TBI independently increases risk of depression, and patient may struggle more emotionally as he gains awareness of his limitations. DIAGNOSIS: Neurocognitive disorder, moderate, due to TBI (hypoxic/anoxic brain injury 2/2 hanging) EtOH use disorder, severe -no indication for M-1 hold at this time. -periodic reassessment for any mood instability or any emergence of suicidal thoughts as patient's course progresses, including as patient gains increased awareness of his deficits, also given mother's report of +family hx of mood d/o. -felt not to be safe to leave hospital medically, based on lack of insight/ judgment related to brain injury Collateral obtained from mother (08/14/17): States patient has been struggling since in [place] over the past year, thinks he moved to [place] in 06/2016 and got 1st DUI in 08/2106. Has hx of 2 prior DUI in [place] but just fined, rules in [place] are different. Because of this, after 1st DUI in [place] , patient's drivers license was suspended, spent time in care home, but released on work-release, was subjected to random Utox 2x/week and drug/EtOH classes which were difficult to attend without driving, "had to use the bus or bike", and caused increased financial stressors for the pt. Mother was surprised to hear he had attempted suicide, she felt this was "very uncharacteristic". States, up until recently, he seems to have been compliant with legal requirements of DUI, although was struggling due to reasons she noted above. Does feel he may have been sometime feeling depressed or anxious about his situation, but never before suicidal. Denied that pt had any prior psychiatric treatment or symptoms, but +FHx of EtOH and mental health. States father, maternal grandmother and paternal grandmother all diagnosed with Bipolar, and EtOH hx, and have been psychiatrically hospitalized, and father on disability for mental health. Denies knowledge of any other subst use in patient except past THC, and tried cocaine, but long EtOH hx.
--- NOTE | 2017-08-14 21:02 | PDCONSULT ---
Ch[employer] Note: PSYCHIATRY CONSULTATION: Requested by trauma service to assess for M-1 due to patient's recent nearly successful suicide attempt by hanging. Date of evaluation: 08/14/2017 Time spent: 45min with patient, 10min with mother on phone Reviewed patient history in EMR and discussed case with staff. BRIEF HISTORY: 36yo CM with history of alcohol use disorder admitted to [facility] after found hanging and without vital signs in custodial after arrest for DUI. 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 Attempted to interview patient on 08/10/17 but he was not oriented to place/time /situation, very slow to respond and with nearly unintelligible speech. On interview this AM, pt had just completed ST assessment on which numerous deficits were noted, per ST. MSE: Patient was in bed, resting, in hosp gown, engaged verbally, with good eye contact, somewhat dysarthic speech but not pressured, normal to slower rate speech, affect generally constricted but smiling appropriately and did laugh briefly (regarding probation, stating the one year he had "may be longer now!") , mood "fine", thought processes with linear responses but noted with inconsistent reporting of dates and amnestic for events surrounding brain injury. He denied any auditory or visual hallucinations, and there was no delusional thoughts or paranoia noted. He consistently denied any suicidal thoughts or any thoughts to harm others. Insight was poor, judgment was poor. cognition impaired. He reported feeling that he was getting better every day, and hopes to leave hospital soon to return to his residence and work. Was disappointed to hear he would likely need longer stay in rehab facility. Stated he was here "because I made a stupid decision...they said I tried to hang myself in custodial." Last recalls being at a friend's house and driving home , "I must've been intoxicated enough to get a DUI". Doesn't recall again until waking up in hospital a couple of days later. States he was told what happened but has no recall. "They said I tried to hang myself with a bed sheet...I think I was upset that I'd done that sh*t again and was mad at myself (drunk driving and custodial)." Does not currently feel he needs to be in substance treatment or rehab. "I think I just need to quit drinking altogether...and driving." Recognizes current DUI violated probation, and with likely consequence of custodial time. If this is the case, denied feeling this would make him feel suicidal or depressed , "no, I'd just have to do it (custodial)." Denied any alcohol cravings. Denied feeling depressed or hopeless. Consistently denied feeling suicidal, no thoughts, plan or intent. Does not recall his attempted hanging. Denied psychotic symptoms, denied feeling anxious, irritable or angry. Denied feeling upset about current situation, "I'm getting better everyday...I'm glad to be alive...I'm optimistic". Gave verbal permission for collateral from mother. PAST PSYCH HX: Denied any history of previously being suicidal, no prior psych hospitalizations or therapy or psychiatric medication/treatment. Denied history of psychosis or suicide or mood disorder. Denied hx of violence towards others. SUBSTANCE USE: Admits EtOH problematic "since my 20's". Denied hx of any prior EtOH/substance treatment programs. 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 Denied other drug use except +THC "in the past, not now". FAM HX: +EtOH: father (who is sober now) and 2 paternal uncles. Denied any family hx of mental illness other substance use or any suicide/attempts in family. 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 States he moved to [place] about 2 months ago. This didn't fit with timeline of other history provided, changed to "maybe 6 months ago", or perhaps 2 years ago. Not sure how long ago he moved to [place]. Lives with a friend in an apt. Reports never , no kids. Has one sister, mother resides in [place] and father in [place]. Parents when patient was 19. Mother designated as medical POA since patient has been in hospital. LEGAL HX: Denied past legal until 1st DUI in [place], "120 days, work release". Currently on probation x 1 year, doing classes. 2nd DUI prior to admission. At least one prior DUI in [facility] case was dismissed. ASSESSMENT: 36yoCM with EtOH dependence, and no reported past psych hx, s/p suicide attempt by hanging while in custodial for DUI, sustaining hypoxic/anoxic brain injury. Does not recall event nor details surrounding event. Does not feel suicidal now , did not recall feeling suicidal, and is speculative as to why he may have attempted suicide when in custodial, and apparently was intoxicated at the time. Denied feeling depressed. Is not suicidal, and has no thoughts to harm others. Does not meet criteria for an M-1 hold. However, has notable cognitive and physical deficits due to his brain injury, and will likely not be able to return to prior baseline level of functioning. Seems without insight into this ( hoping to return home soon and to work), and without insight into the severity and likely long-term sequelae. This lack of insight/awareness may also be a deficit related to his brain injury, so he would not be deemed safe to leave the hospital at this time. Additionally, would need periodic reassessment of his mental health status and safety/suicidal thoughts, since TBI independently increases risk of depression, and patient may struggle more emotionally as he gains awareness of his limitations. DIAGNOSIS: Neurocognitive disorder, moderate, due to TBI (hypoxic/anoxic brain injury 2/2 hanging) EtOH use disorder, severe -no indication for M-1 hold at this time. -periodic reassessment for any mood instability or any emergence of suicidal thoughts as patient's course progresses, including as patient gains increased awareness of his deficits, also given mother's report of +family hx of mood d/o. -felt not to be safe to leave hospital medically, based on lack of insight/ judgment related to brain injury Collateral obtained from mother (08/14/17): States [place] has been struggling since in [place] over the past year, thinks [place] moved to [place] in 06/2016 and got 1st DUI in 08/2106. Has hx of 2 prior DUI in [place] but just fined, rules in [place] are different. Because of this, after 1st DUI in [place] , patient's drivers license was suspended, spent time in custodial, but released on work-release, was subjected to random Utox 2x/week and drug/EtOH classes which were difficult to attend without driving, "had to use the bus or bike", and caused increased financial stressors for the pt. Mother was surprised to hear he had attempted suicide, she felt this was "very uncharacteristic". States, up until recently, he seems to have been compliant with legal requirements of DUI, although was struggling due to reasons she noted above. Does feel he may have been sometime feeling depressed or anxious about his situation, but never before suicidal. Denied that pt had any prior psychiatric treatment or symptoms, but +FHx of EtOH and mental health. States father, maternal grandmother and paternal grandmother all diagnosed with Bipolar, and EtOH hx, and have been psychiatrically hospitalized, and father on disability for mental health. Denies knowledge of any other subst use in patient except past THC, and tried cocaine, but long EtOH hx.
[2017-08-15 05:58] LABS: PLATELET COUNT 291 10^3/uL (150-400)
[2017-08-15] MEDS: ACETAMINOPHEN 500 MG TAB PO SCH ×3 (06:07→21:26)
[2017-08-15] MEDS: PANTOPRAZOLE SODIUM 40 MG TAB PO SCH (10:26)
[2017-08-15] MEDS: THIAMINE HCL 100 MG TAB PO SCH (10:26)
[2017-08-15] MEDS: ENOXAPARIN 40 MG/0.4 ML SYR SC SCH (10:27)
[2017-08-15] MEDS: KETOROLAC 15 MG/1 ML SDV IVP PRN (10:39)
--- NOTE | 2017-08-15 17:43 | ASMTCMCOM ---
CM Note CM Note Notes: Pt inquiring about dc poc. Met w/pt to discuss. He was aware that he came from [facility] and stated that he thought he has to report back to [facility] when he is dc'd from hospital but said that his editor publications is looking into this and should know more by Thursday. He has been in touch w/editor publications since being admitted to hospital. We discussed that therapies are recommending inpt rehab for him and he would be open to going to rehab if that were possible. Per Maria Elena from [facility] Inpt Rehab note they will continue to eval on Thursday. I asked pt if it is ok to share medical information with his mom if she were to call us and he said that would be fine. His mom lives out of state. LVM at [facility] to confirm with them what they were expecting pt to do at dc. Waiting to hear back from them. MALISSA w/f. Date Signed: 08/15/2017 05:43 PM Electronically Signed By:Kaci Avendano RN
--- NOTE | 2017-08-15 17:43 | ASMTCMCOM ---
CM Note CM Note Notes: Pt inquiring about dc poc. Met w/pt to discuss. He was aware that [facility] from [facility] and stated that he thought he has to report back to [facility] when he is dc'd from hospital but said that his public relations specialist is looking into this and should know more by Thursday. He has been in touch w/public relations specialist since being admitted to hospital. We discussed that therapies are recommending inpt rehab for him and he would be open to going to rehab if that were possible. Per Maria Elena from [facility] Inpt Rehab note they will continue to eval on Thursday. I asked pt if it is ok to share medical information with his mom if she were to call us and he said that would be fine. His mom lives out of state. LVM at senior care to confirm with them what they were expecting pt to do at dc. Waiting to hear back from them. MALISSA w/f. Date Signed: 08/15/2017 05:43 PM Electronically Signed By:Kaci Avendano RN
--- NOTE | 2017-08-15 17:43 | ASMTCMCOM ---
CM Note CM Note Notes: Pt inquiring about dc poc. Met w/pt to discuss. He was aware that he [facility] from [facility] and stated that he thought he has to report back to [facility] when he is dc'd from hospital but said that his public works supervisor is looking into this and should know more by Thursday. He has been in touch w/public works supervisor since being admitted to hospital. We discussed that therapies are recommending inpt rehab for him and he would be open to going to rehab if that were possible. Per Maria Elena from [facility] Inpt Rehab note they will continue to eval on Thursday. I asked pt if it is ok to share medical information with his mom if she were to call us and he said that would be fine. His mom lives out of state. LVM at halfway to confirm with them what they were expecting pt to do at dc. Waiting to hear back from them. MALISSA w/f. Date Signed: 08/15/2017 05:43 PM Electronically Signed By:Kaci Avendano RN
[2017-08-16 05:17] LABS: PLATELET COUNT 340 10^3/uL (150-400)
[2017-08-16] MEDS: ACETAMINOPHEN 500 MG TAB PO SCH ×4 (06:01→20:26)
[2017-08-16] MEDS: THIAMINE HCL 100 MG TAB PO SCH (09:32)
[2017-08-16] MEDS: PANTOPRAZOLE SODIUM 40 MG TAB PO SCH (09:32)
[2017-08-16] MEDS: ENOXAPARIN 40 MG/0.4 ML SYR SC SCH (09:32)
--- NOTE | 2017-08-16 14:35 | ASMTCMCOM ---
MALISSA Note MALISSA Note Notes: PT/OT today said that pt had improved 90% in past 24 hrs and is now independent in his room. He will no longer need inpt or HC therapies at [place]. CM met with pt yesterday and he stated that he thought he has to report back to residential when he is dc'd from hospital but said that his public transportation inspector is looking into this and should know more by Thursday. He has been in touch w/public transportation inspector since being admitted to hospital. CM LVM at residential to confirm with them what they were expecting pt to do at [place]. Should hear back from them Thursday. MALISSA w/f. Date Signed: 08/16/2017 02:34 PM Electronically Signed By:Felisha West LCSW
--- NOTE | 2017-08-16 14:35 | ASMTCMCOM ---
MALISSA Note MALISSA Note Notes: PT/OT today said that pt had improved 90% in past 24 hrs and is now independent in his room. He will no longer need inpt or HC therapies at [place]. CM met with pt yesterday and he stated that he thought he has to report back to [facility]term when he is dc'd from hospital but said that his public employment mediator is looking into this and should know more by Thursday. He has been in touch w/public employment mediator since being admitted to hospital. CM LVM at longterm to confirm with them what they were expecting pt to do at [place]. Should hear back from them Thursday. MALISSA w/f. Date Signed: 08/16/2017 02:34 PM Electronically Signed By:Felisha West LCSW
--- NOTE | 2017-08-16 14:35 | ASMTCMCOM ---
MALISSA Note MALISSA Note Notes: PT/OT today said that pt had improved 90% in past 24 hrs and is now independent in his room. He will no longer need inpt or HC therapies at [place]. CM met with pt yesterday and he stated that he thought he has to report back to [facility] when he is dc'd from hospital but said that his distributor publications is looking into this and should know more by Thursday. He has been in touch w/distributor publications since being admitted to hospital. CM LVM at intermediate to confirm with them what they were expecting pt to do at [place]. Should hear back from them Thursday. MALISSA w/f. Date Signed: 08/16/2017 02:34 PM Electronically Signed By:Felisha West LCSW
--- NOTE | 2017-08-16 21:44 | SOAPPROG ---
SOAP Progress Note Assessment/Plan: Assessment: SEEN TODAY FOR TRAUMA SERVICE DOING WELL/ ATAXIA RESOLVED/ HEADACHE RESOLVED / NO NEW PROBLEMS HEENT OK CHEST CLEAR COR RR EXT OK NEURO STABLE AND SYMMETRIC Plan:TO HOME IN AM, PROBABLY SKILLED NURSING 08/16/17 21: Objective: Vital Signs Temp Pulse Resp BP Pulse Ox 36.4 C 65 17 165/99 H 95 08/16/17 21:36 08/16/17 21:36 08/16/17 21:36 08/16/17 21:36 08/16/17 21:36 Laboratory Results 08/16/17 05:03 08/16/17 05:03 08/15/17 08/16/17 08/17/17 06:59 05:59 05:59 Intake Total Balance PT 14.8 SEC (12.0-15.0) 08/09/17 18:30 INR 1.16 (0.83-1.16) 08/09/17 18:30 ICD10 Worksheet Patient Problems: Problems Problem Status Onset Cardiac arrest Acute Hanging Acute Hypoxic brain injury Acute
--- NOTE | 2017-08-16 21:44 | SOAPPROG ---
SOAP Progress Note Assessment/Plan: Assessment: SEEN TODAY FOR TRAUMA SERVICE DOING WELL/ ATAXIA RESOLVED/ HEADACHE RESOLVED / NO NEW PROBLEMS HEENT OK CHEST CLEAR COR RR EXT OK NEURO STABLE AND SYMMETRIC Plan:TO HOME IN AM, PROBABLY CARE HOME 08/16/17 21: Objective: Vital Signs Temp Pulse Resp BP Pulse Ox 36.4 C 65 17 165/99 H 95 08/16/17 21:36 08/16/17 21:36 08/16/17 21:36 08/16/17 21:36 08/16/17 21:36 Laboratory Results 08/16/17 05:03 08/16/17 05:03 08/15/17 08/16/17 08/17/17 06:59 05:59 05:59 Intake Total Balance PT 14.8 SEC (12.0-15.0) 08/09/17 18:30 INR 1.16 (0.83-1.16) 08/09/17 18:30 ICD10 Worksheet Patient Problems: Problems Problem Status Onset Cardiac arrest Acute Hanging Acute Hypoxic brain injury Acute
--- NOTE | 2017-08-16 21:44 | SOAPPROG ---
SOAP Progress Note Assessment/Plan: Assessment: SEEN TODAY FOR TRAUMA SERVICE DOING WELL/ ATAXIA RESOLVED/ HEADACHE RESOLVED / NO NEW PROBLEMS HEENT OK CHEST CLEAR COR RR EXT OK NEURO STABLE AND SYMMETRIC Plan:TO HOME IN AM, PROBABLY HALF-WAY 08/16/17 21: Objective: Vital Signs Temp Pulse Resp BP Pulse Ox 36.4 C 65 17 165/99 H 95 08/16/17 21:36 08/16/17 21:36 08/16/17 21:36 08/16/17 21:36 08/16/17 21:36 Laboratory Results 08/16/17 05:03 08/16/17 05:03 08/15/17 08/16/17 08/17/17 06:59 05:59 05:59 Intake Total Balance PT 14.8 SEC (12.0-15.0) 08/09/17 18:30 INR 1.16 (0.83-1.16) 08/09/17 18:30 ICD10 Worksheet Patient Problems: Problems Problem Status Onset Cardiac arrest Acute Hanging Acute Hypoxic brain injury Acute
[2017-08-16] MEDS: KETOROLAC 15 MG/1 ML SDV IVP PRN (22:14)
[2017-08-16] MEDS: LORazepam 2 MG/ML INJ IVP PRN (22:14)
[2017-08-17 05:57] LABS: PLATELET COUNT 411 10^3/uL (150-400)
[2017-08-17] MEDS: ACETAMINOPHEN 500 MG TAB PO SCH ×4 (06:13→21:06)
[2017-08-17] MEDS: PANTOPRAZOLE SODIUM 40 MG TAB PO SCH (08:49)
[2017-08-17] MEDS: THIAMINE HCL 100 MG TAB PO SCH (08:49)
[2017-08-17] MEDS: ENOXAPARIN 40 MG/0.4 ML SYR SC SCH (08:50)
--- NOTE | 2017-08-17 17:21 | ASMTCMCOM ---
CM Note CM Note Notes: Patient discharging back to [facility]. Spoke with Maria Elena at in rehab who spoke with physicians there who felt patient would need speech therapy following his attempted hanging. She felt he also would need PT. Spoke with the infirmary at the group home and the nurse told this making line worker that we should fax all paperwork to them. They will review and where appropriate have patient transferred to outpatient physical therapy. She said it is the responsiblity of the group home to do that. Also Mavis from [facility] saw patient shortly before discharge and determined patient is not eligible for Medicaid based on his last months salary but may be eligible for the coming month and should explore that with group home staff. Patient will discharge to [facility] when discharge is complete. Call will be made by Charge nurse, Magdalena. Date Signed: 08/17/2017 05:20 PM Electronically Signed By:PAMELA Marte
--- NOTE | 2017-08-17 17:21 | ASMTCMCOM ---
CM Note CM Note Notes: Patient discharging back to [facility]. Spoke with Maria Elena at in rehab who spoke with physicians there who felt patient would need speech therapy following his attempted hanging. She felt he also would need PT. Spoke with the infirmary at the retirement and the nurse told this mortar worker that we should fax all paperwork to them. They will review and where appropriate have patient transferred to outpatient physical therapy. She said it is the responsiblity of the retirement to do that. Also Mavis from [facility] saw patient shortly before discharge and determined patient is not eligible for Medicaid based on his last months salary but may be eligible for the coming month and should explore that with retirement staff. Patient will discharge to [facility] when discharge is complete. Call will be made by Charge nurse, Magdalena. Date Signed: 08/17/2017 05:20 PM Electronically Signed By:PAMELA Marte
--- NOTE | 2017-08-17 17:21 | ASMTCMCOM ---
CM Note CM Note Notes: Patient discharging back to [facility]. Spoke with Maria Elena at in rehab who spoke with physicians there who felt patient would need speech therapy following his attempted hanging. She felt he also would need PT. Spoke with the infirmary at the care home and the nurse told this service worker helper that we should fax all paperwork to them. They will review and where appropriate have patient transferred to outpatient physical therapy. She said it is the responsiblity of the care home to do that. Also Mavis from [facility] saw patient shortly before discharge and determined patient is not eligible for Medicaid based on his last months salary but may be eligible for the coming month and should explore that with care home staff. Patient will discharge to [facility] when discharge is complete. Call will be made by Charge nurse, Magdalena. Date Signed: 08/17/2017 05:20 PM Electronically Signed By:PAMELA Marte
--- NOTE | 2017-08-17 17:31 | PDIAF ---
- Diagnosis Code Status: Full Code - Medication Management Discharge Medications: Medications to Continue on Transfer NK [No Known Home Meds] 08/07/17 [Last Taken Unknown] Discharge Medications: Refer to the Discharge Home Medication list for PRN reason. PICC Care - Routine: N/A - Orders Services needed: Physical Therapy, Speech Language Pathologist Diet Recommendation: no restrictions on diet Diet Texture: Regular Texture Diet, Thin Liquids, Meds Crushed in Puree - Follow Up Care Current Providers and Referrals: NONE *PRIMARY CARE P,. [Primary Care Provider] - As per Instructions
--- NOTE | 2017-08-17 19:56 | SOAPPROG ---
TAN Progress Note Assessment/Plan: Assessment: SEEN TODAY FOR TRAUMA SERVICE DOING WELL/ ATAXIA RESOLVED/ HEADACHE RESOLVED / NO NEW PROBLEMS HEENT OK CHEST CLEAR COR RR EXT OK NEURO STABLE AND SYMMETRIC Plan:TO HOME IN AM, PROBABLY [facility] 08/16/17 21: 08/17/17 19:55 VITAL SIGNS STABLE TODAY/AFEBRILE/NO NEW PROBLEMS OR COMPLAINTS/LABS ARE STABLE/ CHEST X-RAY CLEAR BACK TO [facility] TODAY/WILL CONTINUE WITH SPEECH THERAPY AND PT AN OUTPATIENT Objective: Vital Signs Temp Pulse Resp BP Pulse Ox 36.8 C 76 18 132/76 H 90 L 08/17/17 15:30 08/17/17 15:30 08/17/17 15:30 08/17/17 15:30 08/17/17 15:30 Laboratory Results 08/17/17 05:26 08/17/17 05:26 08/16/17 08/17/17 08/18/17 05:59 05:59 05:59 Intake Total 400 Balance 400 PT 14.8 SEC (12.0-15.0) 08/09/17 18:30 INR 1.16 (0.83-1.16) 08/09/17 18:30 ICD10 Worksheet Patient Problems: Problems Problem Status Onset Cardiac arrest Acute Hanging Acute Hypoxic brain injury Acute
--- NOTE | 2017-08-17 19:56 | SOAPPROG ---
TAN Progress Note Assessment/Plan: Assessment: SEEN TODAY FOR TRAUMA SERVICE DOING WELL/ ATAXIA RESOLVED/ HEADACHE RESOLVED / NO NEW PROBLEMS HEENT OK CHEST CLEAR COR RR EXT OK NEURO STABLE AND SYMMETRIC Plan:TO HOME IN AM, PROBABLY DETENTION 08/16/17 21: 08/17/17 19:55 VITAL SIGNS STABLE TODAY/AFEBRILE/NO NEW PROBLEMS OR COMPLAINTS/LABS ARE STABLE/ CHEST X-RAY CLEAR BACK TO [facility] TODAY/WILL CONTINUE WITH SPEECH THERAPY AND PT AN OUTPATIENT Objective: Vital Signs Temp Pulse Resp BP Pulse Ox 36.8 C 76 18 132/76 H 90 L 08/17/17 15:30 08/17/17 15:30 08/17/17 15:30 08/17/17 15:30 08/17/17 15:30 Laboratory Results 08/17/17 05:26 08/17/17 05:26 08/16/17 08/17/17 08/18/17 05:59 05:59 05:59 Intake Total 400 Balance 400 PT 14.8 SEC (12.0-15.0) 08/09/17 18:30 INR 1.16 (0.83-1.16) 08/09/17 18:30 ICD10 Worksheet Patient Problems: Problems Problem Status Onset Cardiac arrest Acute Hanging Acute Hypoxic brain injury Acute
--- NOTE | 2017-08-17 19:56 | SOAPPROG ---
TAN Progress Note Assessment/Plan: Assessment: SEEN TODAY FOR TRAUMA SERVICE DOING WELL/ ATAXIA RESOLVED/ HEADACHE RESOLVED / NO NEW PROBLEMS HEENT OK CHEST CLEAR COR RR EXT OK NEURO STABLE AND SYMMETRIC Plan:TO HOME IN AM, PROBABLY [facility] 08/16/17 21: 08/17/17 19:55 VITAL SIGNS STABLE TODAY/AFEBRILE/NO NEW PROBLEMS OR COMPLAINTS/LABS ARE STABLE/ CHEST X-RAY CLEAR BACK TO [facility] TODAY/WILL CONTINUE WITH SPEECH THERAPY AND PT AN OUTPATIENT Objective: Vital Signs Temp Pulse Resp BP Pulse Ox 36.8 C 76 18 132/76 H 90 L 08/17/17 15:30 08/17/17 15:30 08/17/17 15:30 08/17/17 15:30 08/17/17 15:30 Laboratory Results 08/17/17 05:26 08/17/17 05:26 08/16/17 08/17/17 08/18/17 05:59 05:59 05:59 Intake Total 400 Balance 400 PT 14.8 SEC (12.0-15.0) 08/09/17 18:30 INR 1.16 (0.83-1.16) 08/09/17 18:30 ICD10 Worksheet Patient Problems: Problems Problem Status Onset Cardiac arrest Acute Hanging Acute Hypoxic brain injury Acute
[2017-08-17 22:21] VITALS: O2SAT 92
[2017-08-18 05:30] LABS: PLATELET COUNT 445 10^3/uL (150-400)
[2017-08-18] MEDS: ACETAMINOPHEN 500 MG TAB PO SCH (06:03)
[2017-08-18] MEDS: PANTOPRAZOLE SODIUM 40 MG TAB PO SCH (08:55)
[2017-08-18] MEDS: ENOXAPARIN 40 MG/0.4 ML SYR SC SCH (08:55)
[2017-08-18] MEDS: THIAMINE HCL 100 MG TAB PO SCH (08:55)
[2017-08-18 09:10] VITALS: BP 132/77; PULSE 85; RESP 18; TEMP 98.3
--- NOTE | 2017-08-18 12:13 | ASDISCHSUM ---
Discharge Information Plan Status: Medically Cleared to Leave:08/16/2017 Discharge Date:08/16/2017 MALISSA D/C Disposition:Law Enforcement/Court/Chcf ARSLAN D/C Disposition: Projected Discharge Date:08/17/2017 07:00 PM Transportation at D/C: Discharge Delay Reason: Follow-Up Date:08/17/2017 07:00 PM Discharge Slot: Final Diagnosis:Hanging, Hypoxic brain inj, post cardiac arrest Placement Information Patient Contact Information Contact Name:YOUNG Relationship:Mother Address: Work Phone: City: [facility] Phone: State/Zip Code: Email: Financial Information Financial Class:Commercial Primary Plan Desc:[facility] Primary Plan Number:[id number] Secondary Plan Desc: Secondary Plan Number: Assessment Information [facility] Progress Note CM Note CM Note Notes: Patient brought to the ER per EMS s/p found "hanging" at the [facility]. Pulseless upon finding, rhythm returned after resuccitation efforts. No return of LOC. Unable to obtain history, NOK, etc. Per officer González with the [facility] Office, gem are looking into finding NOK contact information. HACA to be initiated and patient admit to ICU. Date Signed: 08/07/2017 01:13 PM Electronically Signed By:Keke Villeda RN [facility] CM Progress Note CM Note CM Note Notes: Contact number per [place] Police given to Helicopter Technician, number ended up being that of a friend. He is to contact family and have them call and speak to physician, Brother in law called and spoke to physician. He will speak to patient's sister and mother both of whom are out of state. They are to call back to speak with physician. CM to follow. Date Signed: 08/07/2017 03:27 PM Electronically Signed By:Richelle Morales RN [facility] CM Progress Note CM Note CM Note Notes: Mother called and spoke to Dr. Knowles . Her name is Eve Martin [phone]. She has not decided if she is coming to [place]. Mother's contact number updated to facesheet and on whiteboard in room. Contact number per [place] Police given to Helicopter Technician, number ended up being that of a friend. He is to contact family and have them call and speak to physician, Brother in law called and spoke to physician. He will speak to patient's sister and mother both of whom are out of state. They are to call back to speak with physician. CM to follow. Date Signed: 08/07/2017 03:56 PM Electronically Signed By:Richelle Morales RN [facility] CM Progress Note CM Note CM Note Notes: Pt continues on HACA. Warming protocol to start soon. Per Dr Knowles, pt's parents will not be coming. Per trauma surgeon's note, donor alliance has been notified. C/M available as needed. Date Signed: 08/08/2017 03:32 PM Electronically Signed By:Felisha West LCSW [facility] MALISSA Progress Note CM Note CM Note Notes: Patient's mother, Eve, contacted and asked that she be made his MPOA. It was explained to mother that patient was unable to make decisions at this time so could not name a MPOA, but she possibly could be his Medical Proxy and that the Bench Worker would be calling her. THis CM contacted the Sales Activity Manager's phone# in patient's chart. Patient will be returned to [facility] when medically cleared and discharged. Call [phone] for transport. Discharge orders need to be written, meds reconciled and faxed to [facility] [phone]; Date Signed: 08/11/2017 03:05 PM Electronically Signed By:Therese Irizarry LCSW [facility] AMLISSA Progress Note MALISSA Note CM Note Notes: Chart reviewed. Patient suffering from anoxic brain injury, for cognitive evaluation. Patient needs to be placed on M1 hold and will need TLC evaluation when medically cleared. Spoke with [facility], patient granted temporary [place] cervantes on Thursday. Will need screening for medicaid. Message left with Mindy [place]. CM to follow. Date Signed: 08/13/2017 03:45 PM Electronically Signed By:Richelle Morales RN [facility] CM Progress Note CM Note CM Note Notes: Psychiatrist met with patient today and determined that he does not need to be on an M1hold. She ok'ed his transfer to the Med-Surg floor and referral to inpatient rehab. RN to order rehab consult. Per Adamaris Virk, patient's mom (healthcare proxy) has Medicaid application paperwork and needs to submit to [facility]. Discharge plan TBD. CM will follow. Date Signed: 08/14/2017 11:40 AM Electronically Signed By:Radha Guillory RN [facility] CM Progress Note CM Note CM Note Notes: Pt inquiring about dc poc. Met w/pt to discuss. He was aware that he [facility] from [facility] and stated that he thought he has to report back to [facility] when he is dc'd from hospital but said that his publication specialist is looking into this and should know more by Thursday. He has been in touch w/publication specialist since being admitted to hospital. We discussed that therapies are recommending inpt rehab for him and he would be open to going to rehab if that were possible. Per Maria Elena from [facility] In[facility] Re[facility] note they will continue to eval on Thursday. I asked pt if it is ok to share medical information with his mom if she were to call us and he said that would be fine. His mom lives out of state. LVM at [facility] to confirm with them what they were expecting pt to do at dc. Waiting to hear back from them. MALISSA w/f. Date Signed: 08/15/2017 05:43 PM Electronically Signed By:Kaci Avendano RN [facility] Progress Note CM Note CM Note Notes: PT/OT today said that pt had improved 90% in past 24 hrs and is now independent in his room. He will no longer need inpt or HC therapies at [place]. MALISSA met with pt yesterday and he stated that he thought he has to report back to [facility] when he is dc'd from hospital but said that his publication specialist is looking into this and should know more by Thursday. He has been in touch w/publication specialist since being admitted to hospital. CM LVM at [facility] to confirm with them what they were expecting pt to do at [place]. Should hear back from them Thursday. MALISSA w/f. Date Signed: 08/16/2017 02:34 PM Electronically Signed By:Felisha West LCSW [facility] MALISSA Progress Note MALISSA Note CM Note Notes: Patient discharging back to [facility]. Spoke with Maria Elena at inpt rehab who spoke with physicians there who felt patient would need speech therapy following his attempted hanging. She felt he also would need PT. Spoke with the infirmary at the [facility] and the nurse told this pick and shovel worker that we should fax all paperwork to them. They will review and where appropriate have patient transferred to outpatient physical therapy. She said it is the responsiblity of the [facility] to do that. Also Mavis from [facility] saw patient shortly before discharge and determined patient is not eligible for Medicaid based on his last months salary but may be eligible for the coming month and should explore that with [facility] staff. Patient will discharge to [facility] when discharge is complete. Call will be made by Charge nurse, Magdalena. Date Signed: 08/17/2017 05:20 PM Electronically Signed By:PAMELA Marte Intervention Information Intervention Type:*Incorrect Registration Date of Service:08/07/2017 02:42 PM Patient Type:Observation Staff Member:KIM Tamayo, Jacquelin Hours: Discipline: Severity: Comment:
--- NOTE | 2017-08-18 12:13 | ASDISCHSUM ---
Discharge Information Plan Status: Medically Cleared to Leave:08/16/2017 Discharge Date:08/16/2017 MALISSA D/C Disposition:Law Enforcement/Court/Long Term ARSLAN D/C Disposition: Projected Discharge Date:08/17/2017 07:00 PM Transportation at D/C: Discharge Delay Reason: Follow-Up Date:08/17/2017 07:00 PM Discharge Slot: Final Diagnosis:Hanging, Hypoxic brain inj, post cardiac arrest Placement Information Patient Contact Information Contact Name:YOUNG Relationship:Mother Address: Work Phone: City: [facility] Phone: State/Zip Code: Email: Financial Information Financial Class:Commercial Primary Plan Desc:[facility] Primary Plan Number:[id number] Secondary Plan Desc: Secondary Plan Number: Assessment Information [facility] Progress Note CM Note CM Note Notes: Patient brought to the ER per EMS s/p found "hanging" at the group home. Pulseless upon finding, rhythm returned after resuccitation efforts. No return of LOC. Unable to obtain history, NOK, etc. Per officer González with the [facility] Office, gem are looking into finding NOK contact information. HACA to be initiated and patient admit to ICU. Date Signed: 08/07/2017 01:13 PM Electronically Signed By:Keke Villeda RN [facility] CM Progress Note CM Note CM Note Notes: Contact number per [place] Police given to Professional Nurse, number ended up being that of a friend. He is to contact family and have them call and speak to physician, Brother in law called and spoke to physician. He will speak to patient's sister and mother both of whom are out of state. They are to call back to speak with physician. CM to follow. Date Signed: 08/07/2017 03:27 PM Electronically Signed By:Richelle Morales RN [facility] CM Progress Note CM Note CM Note Notes: Mother called and spoke to Dr. Knowles . Her name is Eve Martin [phone]. She has not decided if she is coming to [place]. Mother's contact number updated to facesheet and on whiteboard in room. Contact number per [place] Police given to Professional Nurse, number ended up being that of a friend. He is to contact family and have them call and speak to physician, Brother in law called and spoke to physician. He will speak to patient's sister and mother both of whom are out of state. They are to call back to speak with physician. CM to follow. Date Signed: 08/07/2017 03:56 PM Electronically Signed By:Richelle Morales RN [facility] CM Progress Note CM Note CM Note Notes: Pt continues on HACA. Warming protocol to start soon. Per Dr Knowles, pt's parents will not be coming. Per trauma surgeon's note, donor alliance has been notified. C/M available as needed. Date Signed: 08/08/2017 03:32 PM Electronically Signed By:Felisha West LCSW [facility] MALISSA Progress Note CM Note CM Note Notes: Patient's mother, Eve, contacted and asked that she be made his MPOA. It was explained to mother that patient was unable to make decisions at this time so could not name a MPOA, but she possibly could be his Medical Proxy and that the De Icer Finisher would be calling her. THis CM contacted the Investment Sales Assistant's phone# in patient's chart. Patient will be returned to group home when medically cleared and discharged. Call [phone] for transport. Discharge orders need to be written, meds reconciled and faxed to [facility] [phone]; Date Signed: 08/11/2017 03:05 PM Electronically Signed By:Therese Irizarry LCSW [facility] MALISSA Progress Note MALISSA Note CM Note Notes: Chart reviewed. Patient suffering from anoxic brain injury, for cognitive evaluation. Patient needs to be placed on M1 hold and will need TLC evaluation when medically cleared. Spoke with [facility], patient granted temporary [place] cervantes on Thursday. Will need screening for medicaid. Message left with Mindy Vegas. CM to follow. Date Signed: 08/13/2017 03:45 PM Electronically Signed By:Richelle Morales RN [facility] CM Progress Note CM Note CM Note Notes: Psychiatrist met with patient today and determined that he does not need to be on an M1hold. She ok'ed his transfer to the Med-Surg floor and referral to inpatient rehab. RN to order rehab consult. Per Adamaris Virk, patient's mom (healthcare proxy) has Medicaid application paperwork and needs to submit to [facility]. Discharge plan TBD. CM will follow. Date Signed: 08/14/2017 11:40 AM Electronically Signed By:Radha Guillory RN [facility] CM Progress Note CM Note CM Note Notes: Pt inquiring about dc poc. Met w/pt to discuss. He was aware that he came from group home and stated that he thought he has to report back to group home when he is dc'd from hospital but said that his public safety officer is looking into this and should know more by Thursday. He has been in touch w/public safety officer since being admitted to hospital. We discussed that therapies are recommending inpt rehab for him and he would be open to going to rehab if that were possible. Per Maria Elena from [facility] Inpt Rehab note they will continue to eval on Thursday. I asked pt if it is ok to share medical information with his mom if she were to call us and he said that would be fine. His mom lives out of state. LVM at group home to confirm with them what they were expecting pt to do at dc. Waiting to hear back from them. MALISSA w/f. Date Signed: 08/15/2017 05:43 PM Electronically Signed By:Kaci Avendano RN [facility] Progress Note CM Note CM Note Notes: PT/OT today said that pt had improved 90% in past 24 hrs and is now independent in his room. He will no longer need inpt or HC therapies at [place]. MALISSA met with pt yesterday and he stated that he thought he has to report back to group home when he is dc'd from hospital but said that his public safety officer is looking into this and should know more by Thursday. He has been in touch w/public safety officer since being admitted to hospital. CM LVM at group home to confirm with them what they were expecting pt to do at in. Should hear back from them Thursday. MALISSA w/f. Date Signed: 08/16/2017 02:34 PM Electronically Signed By:Felisha West LCSW [facility] MALISSA Progress Note MALISSA Note CM Note Notes: Patient discharging back to [facility]. Spoke with Maria Elena at inpt rehab who spoke with physicians there who felt patient would need speech therapy following his attempted hanging. She felt he also would need PT. Spoke with the infirmary at the group home and the nurse told this grey roll worker that we should fax all paperwork to them. They will review and where appropriate have patient transferred to outpatient physical therapy. She said it is the responsiblity of the group home to do that. Also Mavis from [facility] saw patient shortly before discharge and determined patient is not eligible for Medicaid based on his last months salary but may be eligible for the coming month and should explore that with group home staff. Patient will discharge to [facility] when discharge is complete. Call will be made by Charge nurse, Magdalena. Date Signed: 08/17/2017 05:20 PM Electronically Signed By:PAMELA Marte Intervention Information Intervention Type:*Incorrect Registration Date of Service:08/07/2017 02:42 PM Patient Type:Observation Staff Member:KIM Tamayo, Jacquelin Hours: Discipline: Severity: Comment:
--- NOTE | 2017-08-18 12:13 | ASDISCHSUM ---
Discharge Information Plan Status: Medically Cleared to Leave:08/16/2017 Discharge Date:08/16/2017 MALISSA D/C Disposition:Law Enforcement/Court/Alf ARSLAN D/C Disposition: Projected Discharge Date:08/17/2017 07:00 PM Transportation at D/C: Discharge Delay Reason: Follow-Up Date:08/17/2017 07:00 PM Discharge Slot: Final Diagnosis:Hanging, Hypoxic brain inj, post cardiac arrest Placement Information Patient Contact Information Contact Name:YOUNG Relationship:Mother Address: Work Phone: City: [facility] Phone: State/Zip Code: Email: Financial Information Financial Class:Commercial Primary Plan Desc:[facility] Primary Plan Number:[id number] Secondary Plan Desc: Secondary Plan Number: Assessment Information [facility] Progress Note CM Note CM Note Notes: Patient brought to the ER per EMS s/p found "hanging" at the senior care. Pulseless upon finding, rhythm returned after resuccitation efforts. No return of LOC. Unable to obtain history, NOK, etc. Per officer González with the [facility] Office, gem are looking into finding NOK contact information. HACA to be initiated and patient admit to ICU. Date Signed: 08/07/2017 01:13 PM Electronically Signed By:Keke Villeda RN [facility] CM Progress Note CM Note CM Note Notes: Contact number per [place] Police given to Cable Testers Helper, number ended up being that of a friend. He is to contact family and have them call and speak to physician, Brother in law called and spoke to physician. He will speak to patient's sister and mother both of whom are out of state. They are to call back to speak with physician. CM to follow. Date Signed: 08/07/2017 03:27 PM Electronically Signed By:Richelle Morales RN [facility] CM Progress Note CM Note CM Note Notes: Mother called and spoke to Dr. Knowles . Her name is Eve Martin [phone]. She has not decided if she is coming to [place]. Mother's contact number updated to facesheet and on whiteboard in room. Contact number per [place] Police given to Cable Testers Helper, number ended up being that of a friend. He is to contact family and have them call and speak to physician, Brother in law called and spoke to physician. He will speak to patient's sister and mother both of whom are out of state. They are to call back to speak with physician. CM to follow. Date Signed: 08/07/2017 03:56 PM Electronically Signed By:Richelle Morales RN [facility] CM Progress Note CM Note CM Note Notes: Pt continues on HACA. Warming protocol to start soon. Per Dr Knowles, pt's parents will not be coming. Per trauma surgeon's note, donor alliance has been notified. C/M available as needed. Date Signed: 08/08/2017 03:32 PM Electronically Signed By:Felisha West LCSW [facility] MALISSA Progress Note CM Note CM Note Notes: Patient's mother, Eve, contacted and asked that she be made his MPOA. It was explained to mother that patient was unable to make decisions at this time so could not name a MPOA, but she possibly could be his Medical Proxy and that the Rug Cleaning Supervisor would be calling her. THis CM contacted the Aircraft De Icer Installer's phone# in patient's chart. Patient will be returned to senior care when medically cleared and discharged. Call [phone] for transport. Discharge orders need to be written, meds reconciled and faxed to [facility] [phone]; Date Signed: 08/11/2017 03:05 PM Electronically Signed By:Therese Irizarry LCSW [facility] MALISSA Progress Note MALISSA Note CM Note Notes: Chart reviewed. Patient suffering from anoxic brain injury, for cognitive evaluation. Patient needs to be placed on M1 hold and will need TLC evaluation when medically cleared. Spoke with [facility], patient granted temporary [place] cervantes on Thursday. Will need screening for medicaid. Message left with Mindy Vegas. CM to follow. Date Signed: 08/13/2017 03:45 PM Electronically Signed By:Richelle Morales RN [facility] CM Progress Note CM Note CM Note Notes: Psychiatrist met with patient today and determined that he does not need to be on an M1hold. She ok'ed his transfer to the Med-Surg floor and referral to inpatient rehab. RN to order rehab consult. Per Adamaris Virk, patient's mom (healthcare proxy) has Medicaid application paperwork and needs to submit to [facility]. Discharge plan TBD. CM will follow. Date Signed: 08/14/2017 11:40 AM Electronically Signed By:Radha Guillory RN [facility] CM Progress Note CM Note CM Note Notes: Pt inquiring about dc poc. Met w/pt to discuss. He was aware that he came from senior care and stated that he thought he has to report back to senior care when he is dc'd from hospital but said that his public stenographer is looking into this and should know more by Thursday. He has been in touch w/public stenographer since being admitted to hospital. We discussed that therapies are recommending inpt rehab for him and he would be open to going to rehab if that were possible. Per Maria Elena from [facility] Inpt Rehab note they will continue to eval on Thursday. I asked pt if it is ok to share medical information with his mom if she were to call us and he said that would be fine. His mom lives out of state. LVM at senior care to confirm with them what they were expecting pt to do at dc. Waiting to hear back from them. MALISSA w/f. Date Signed: 08/15/2017 05:43 PM Electronically Signed By:Kaci Avendano RN [facility] Progress Note CM Note CM Note Notes: PT/OT today said that pt had improved 90% in past 24 hrs and is now independent in his room. He will no longer need inpt or HC therapies at [place]. MALISSA met with pt yesterday and he stated that he thought he has to report back to senior care when he is dc'd from hospital but said that his public stenographer is looking into this and should know more by Thursday. He has been in touch w/public stenographer since being admitted to hospital. CM LVM at senior care to confirm with them what they were expecting pt to do at [place]. Should hear back from them Thursday. MALISSA w/f. Date Signed: 08/16/2017 02:34 PM Electronically Signed By:Felisha West LCSW [facility] MALISSA Progress Note MALISSA Note CM Note Notes: Patient discharging back to [facility]. Spoke with Maria Elena at inpt rehab who spoke with physicians there who felt patient would need speech therapy following his attempted hanging. She felt he also would need PT. Spoke with the infirmary at the senior care and the nurse told this hall worker that we should fax all paperwork to them. They will review and where appropriate have patient transferred to outpatient physical therapy. She said it is the responsiblity of the senior care to do that. Also Mavis from [facility] saw patient shortly before discharge and determined patient is not eligible for Medicaid based on his last months salary but may be eligible for the coming month and should explore that with senior care staff. Patient will discharge to [facility] when discharge is complete. Call will be made by Charge nurse, Magdalena. Date Signed: 08/17/2017 05:20 PM Electronically Signed By:PAMELA Marte Intervention Information Intervention Type:*Incorrect Registration Date of Service:08/07/2017 02:42 PM Patient Type:Observation Staff Member:KIM Tamayo, Jacquelin Hours: Discipline: Severity: Comment:
--- NOTE | 2017-08-18 12:41 | ASMTCMCOM ---
CM Note CM Note Notes: [facility] Sheriff here to transport patient to halfway. Mechanical Systems Designer assisted by [facility] security assisted with discharge transport to [place] vehicle. [place] related that patient will be on suicide watch while incarcerated. All relevant information faxed to the infermary at the halfway. [phone]. The RN said that they will take the physician orders and review to determine what home care they can address at the halfway. PT and Speech therapy had been ordered. She told me that is for them to determine once patient has returned. Date Signed: 08/18/2017 12:39 PM Electronically Signed By:PAMELA Marte
--- NOTE | 2017-08-18 12:41 | ASMTCMCOM ---
CM Note CM Note Notes: [facility] Sheriff here to transport patient to shelter. Senior Outside Sales Representative assisted by [facility] security assisted with discharge transport to [employer] vehicle. [place] related that patient will be on suicide watch while incarcerated. All relevant information faxed to the infermary at the shelter. [phone]. The RN said that they will take the physician orders and review to determine what home care they can address at the shelter. PT and Speech therapy had been ordered. She told me that is for them to determine once patient has returned. Date Signed: 08/18/2017 12:39 PM Electronically Signed By:PAMELA Marte
--- NOTE | 2017-08-18 12:41 | ASMTCMCOM ---
CM Note CM Note Notes: [facility] Sheriff here to transport patient to [facility]iary. Verify Rep assisted by [facility] security assisted with discharge transport to [employer] vehicle. [place] related that patient will be on suicide watch while incarcerated. All relevant information faxed to the infermary at the penitentiary. [phone]. The RN said that they will take the physician orders and review to determine what home care they can address at the penitentiary. PT and Speech therapy had been ordered. She told me that is for them to determine once patient has returned. Date Signed: 08/18/2017 12:39 PM Electronically Signed By:PAMELA Marte
== END 2017-08-18 12:42 | DRG 922 ==
LOC: EEVIPCON 12:54 → F2N 13:54 → OBSVTOIN 14:07 → F3N 08-14 13:26 → F1N 08-16 21:34
PROVIDERS: ADMIT Surgery; ATTEND Surgery
DX: T71.162A Asphyxiation due to hanging, intentional self-harm, initial encounter (principal); I46.8 Cardiac arrest due to other underlying condition; X83.8XXA Intentional self-harm by other specified means, initial encounter; G93.1 Anoxic brain damage, not elsewhere classified; R40.2431 Glasgow coma scale score 3-8, in the field [EMT or ambulance]; F10.20 Alcohol dependence, uncomplicated; S22.42XA Multiple fractures of ribs, left side, initial encounter for closed fracture; X58.XXXA Exposure to other specified factors, initial encounter; Y92.143 Cell of prison as the place of occurrence of the external cause; Y99.8 Other external cause status
CPT/HCPCS: 80305; 82947-QW; 92507-GN; 92523-GN; 92526-GN; 92610-GN; 96374; 97112-GP; 97116-GP; 97161-GP; 97165-GO; 97530-GO; 97535-GO; G0480; J0610; J1335; J1650; J1885; J1940; J2060; J2250; J2704; J3010; J3411; J3475; L0172